=== PATIENT | female | born 1960 | race Caucasian/White ===

== ENCOUNTER 2017-03-05 06:08 | Emergency (ER) | payer OTHER ==
[2017-03-05 06:13] VITALS: BP 137/90
--- NOTE | 2017-03-05 06:25 | EDM.PDOC ---
ED HPI HEADACHE COMPLAINT - General Chief Complaint: Headache Stated Complaint: migraine Time Seen by Provider: 03/05/17 06:24 Source of Information: Reports: Patient, RN, RN notes reviewed History Limitations: Reports: No limitations - History of Present Illness INITIAL COMMENTS - FREE TEXT/NARRATIVE: Patient presents to the emergency room at [facility] complaining of a severe migraine headache. The patient states her migraine began last Sunday. The patient states that she did take 2 of her Imitrex at home, which did not help. The patient states she has been severely nauseated. The patient states she has severe photophobia. The patient states that she has been vomiting every 3 hours. 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, Other medication(s) - Related Data Allergies/ADRs: Allergies Allergy/AdvReac Type Severity Reaction Status Date / Time gabapentin Allergy Hives Verified 03/05/17 06:09 Home Meds: Home Meds DULoxetine HCl [Cymbalta] 60 mg PO BID 06/16/14 [History] Estrogens, Conjugated [Premarin] 0.3 mg PO DAILY 06/16/14 [History] Hydrocodone/Acetaminophen [Hydrocodon-Acetaminophn 10-325] 10 - 325 mg PO Q4HR PRN 06/16/14 [History] Lansoprazole 30 mg PO DAILY 06/16/14 [History] Metoprolol Tartrate [Lopressor] 50 mg PO DAILY 06/16/14 [History] Pramipexole [Mirapex] 0.5 mg PO BEDTIME 06/16/14 [History] SUMAtriptan Succinate [Imitrex] 100 mg PO BID PRN 06/16/14 [History] buPROPion HCl [Wellbutrin Xl] 300 mg PO DAILY 06/16/14 [History] Topiramate [Topamax] 1 tab PO DAILY 04/23/15 [History] Linaclotide [Linzess] 1 cap PO DAILY 09/18/15 [History] Past Medical History Other Gastrointestinal History: ulcers Neurological History: Reports: Migraines - Past Surgical History Other GI Surgeries/Procedures: cyst removed from stomach Social & Family History - Family History Family Medical History: Noncontributory - Tobacco Use Smoking Status *Q: Never Smoker Second Hand Smoke Exposure: No - Alcohol Use Days Per Week of Alcohol Use: 0 - Recreational Drug Use Recreational Drug Use: No ED ROS GENERAL - Review of Systems Review Of Systems: See Below Constitutional: Denies: fever, chills, weakness HEENT: Denies: Vertigo, Vision change Respiratory: Denies: Shortness of Breath, Cough Cardiovascular: Denies: Chest pain, Palpitations GI/Abdominal: Reports: Nausea, Vomiting. Denies: Diarrhea Skin: Reports: no symptoms Neurological: Reports: Headache. Denies: Numbness, Paresthesia, Tingling - Physical Exam Exam: See Below Exam Limited By: No limitations General Appearance: alert, moderate distress Eye Exam: bilateral eye: EOMI, normal inspection, PERRL Respiratory/Chest: no respiratory distress, lungs clear, normal breath sounds Cardiovascular: regular rate, rhythm GI/Abdominal: normal bowel sounds, soft, non tender Neuro Exam (Abbreviated): alert, oriented Skin Exam: Warm, Dry, Intact, Normal color, No rash Course - Vital Signs Last Recorded V/S: Last Vital Signs Temp 36.6 C 03/05/17 06:10 Pulse 129 H 03/05/17 06:10 Resp 22 H 03/05/17 06:10 BP 137/90 03/05/17 06:10 Pulse Ox 95 03/05/17 06:10 - Orders/Labs/Meds Orders: Active Orders 24 hr Category Date Time Status Sodium Chloride 0.9% [Normal Saline] 1,000 ml Med 03/05/17 06:30 Active IV ASDIRECTED Sodium Chloride 0.9% [Saline Flush] Med 03/05/17 06:30 Active 10 ml FLUSH ASDIRECTED PRN Peripheral IV Insertion Adult [OM.PC] Routine Oth 03/05/17 06:30 Ordered Medication Orders Sodium Chloride (Normal Saline) 1,000 mls @ 999 mls/hr IV ASDIRECTED ELTON Last Admin: 03/05/17 06:39 Dose: 999 mls/hr Sodium Chloride (Saline Flush) 10 ml FLUSH ASDIRECTED PRN PRN Reason: Keep Vein Open Meds: Medications Generic Name Dose Route Start Last Admin Trade Name Freq PRN Reason Stop Dose Admin Sodium Chloride 1,000 mls @ 999 mls/hr 03/05/17 06:30 03/05/17 06:39 Normal Saline IV 999 mls/hr ASDIRECTED ELTON Administration Sodium Chloride 10 ml 03/05/17 06:30 Saline Flush FLUSH ASDIRECTED PRN Keep Vein Open Discontinued Medications Generic Name Dose Route Start Last Admin Trade Name Freq PRN Reason Stop Dose Admin Ketorolac Tromethamine 30 mg 03/05/17 06:30 03/05/17 06:41 Toradol IVPUSH 03/05/17 06:31 30 mg ONETIME ONE Administration Ondansetron HCl 4 mg 03/05/17 06:30 03/05/17 06:40 Zofran IVPUSH 03/05/17 06:31 4 mg ONETIME ONE Administration Sumatriptan Succinate 6 mg 03/05/17 06:31 03/05/17 06:43 Imitrex SUBCUT 03/05/17 06:32 6 mg ONETIME ONE Administration Departure - Departure Time of Disposition: 07:03 Disposition: Home, Self-Care 01 Condition: good Clinical Impression: Migraine Qualifiers: Migraine type: unspecified Status migrainosus presence: without status migrainosus Intractability: not intractable Qualified Code(s): G43.909 - Migraine, unspecified, not intractable, without status migrainosus Instructions: Migraine Headache Referrals: Hollie Weaver MD [Physician] - Forms: ED Department Discharge Additional Instructions: 1. Stay well hydrated and rest 2. Talk with your Primary as symptoms warrant - Problem List Review Problem List Initiated/Reviewed/Updated: Yes - My Orders Last 24 Hours: My Active Orders 03/05/17 06:30 Sodium Chloride 0.9% [Normal Saline] 1,000 ml IV ASDIRECTED Sodium Chloride 0.9% [Saline Flush] 10 ml FLUSH ASDIRECTED PRN Peripheral IV Insertion Adult [OM.PC] Routine - Assessment/Plan Last 24 Hours: My Active Orders 03/05/17 06:30 Sodium Chloride 0.9% [Normal Saline] 1,000 ml IV ASDIRECTED Sodium Chloride 0.9% [Saline Flush] 10 ml FLUSH ASDIRECTED PRN Peripheral IV Insertion Adult [OM.PC] Routine
[2017-03-05] MEDS ORDERED: Sodium Chloride 0.9% 1,000 ML IV SCH (06:30)
[2017-03-05] MEDS ORDERED: Ketorolac 30 MG/ML SDV IVPUSH ONE (06:30)
[2017-03-05] MEDS ORDERED: Ondansetron 4 MG/2 ML SDV IVPUSH ONE (06:30)
[2017-03-05] MEDS ORDERED: Sodium Chloride 0.9% 10 ML Syringe FLUSH PRN (06:30)
[2017-03-05] MEDS ORDERED: SUMAtriptan 6 MG/0.5 ML SDV SUBCUT ONE (06:31)
== END 2017-03-05 07:40 | disposition home or self-care (01) ==
LOC: VM.ED 06:08
DX: G43.909 Migraine, unspecified, not intractable, without status migrainosus (principal); Z88.8 Allergy status to other drugs, medicaments and biological substances; Z79.899 Other long term (current) drug therapy
CPT/HCPCS: 96361; 96372; 96374; 96375; 99283; J1885; J2405; J3030; J7030

== ENCOUNTER 2020-05-23 13:13 | Emergency (ER) | payer OTHER ==
--- NOTE | 2020-05-23 14:04 | EDM.PDOC ---
ED HPI GENERAL MEDICAL PROBLEM - General Chief Complaint: General Time Seen by Provider: 05/23/20 13:20 Source of Information: Reports: Patient History Limitations: Reports: No Limitations - History of Present Illness INITIAL COMMENTS - FREE TEXT/NARRATIVE: Pt. presents to ER with complaints of laceration to forehead and pain in her R upper arm/shoulder but didn't come in to ER, stating that she didn't have a ride. Pt. states that she tripped over her dog last night around midnight, striking her head on the corner of a wall and her R upper arm on the floor. Pt. did not have any LOC. Pt. remembers the entire event and did not have any LOC. She has been unable to move her R upper arm. She denied any chest pain, shortness of breath, or palpitations prior to the fall. Pt. denies any neck pain. No nausea/vomiting. Denies any headache. No acute vision loss or change. Pt. denies drinking alcohol. No drug use. Onset: Today Onset Date: 05/23/20 Location: Reports: Head, Upper Extremity, Right Quality: Reports: Sharp Severity: Moderate Improves with: Reports: Immobilization Worsens with: Reports: Movement Right Shoulder Pain Score (Numeric/FACES): 10 Forehead Pain Score (Numeric/FACES): 10 - Related Data Allergies Allergy/AdvReac Type Severity Reaction Status Date / Time gabapentin Allergy Rash Verified 05/23/20 13:30 Home Meds: Home Meds DULoxetine HCl [Cymbalta] 120 mg PO BEDTIME 06/16/14 [History] Metoprolol Tartrate [Lopressor] 25 mg PO BID 06/16/14 [History] Pramipexole [Mirapex] 0.5 mg PO BEDTIME 06/16/14 [History] Linaclotide [Linzess] 290 mcg PO DAILY 09/18/15 [History] Fluticasone Propionate [Flonase] 1 spray NASBOTH BID PRN 04/18/17 [History] SUMAtriptan [Sumatriptan] 1 spray RADHAMES Q2H PRN 04/18/17 [History] SUMAtriptan succinate [Imitrex] 100 mg PO ASDIRECTED PRN 04/18/17 [History] Zolpidem Tartrate [Ambien] 10 mg PO BEDTIME PRN 04/18/17 [History] traMADol HCl [Ultram] 50 mg PO Q6H PRN 04/18/17 [History] SUMAtriptan [Imitrex] 6 mg SUBCUT DAILY PRN 07/31/17 [History] Aspirin 81 mg PO DAILY 08/28/19 [History] LORazepam 0.5 mg PO ASDIRECTED 08/28/19 [History] QUEtiapine Fumarate [Quetiapine Fumarate] 200 mg PO BEDTIME 08/28/19 [History] atorvaSTATin [Lipitor] 20 mg PO BEDTIME 08/28/19 [History] Cyclobenzaprine [Flexeril] 5 mg PO TID PRN 03/16/20 [History] Past Medical History HEENT History: Reports: Allergic Rhinitis, Other (See Below) Other HEENT History: perichondritis of pinna. myopia. presbyopia. chronic rhinitis Cardiovascular History: Reports: High Cholesterol, Hypertension Gastrointestinal History: Reports: Bowel Obstruction, GERD, Irritable Bowel Syndrome, Other (See Below) Other Gastrointestinal History: chronic gastric ulcer. nausea. 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 femur abnormality. bone and cartilage disorder. trochanteric bursitis bilat hip. left elbow pain Neurological History: Reports: Migraines, Seizure, Other (See Below) Other Neuro History: chronic fatigue Psychiatric History: Reports: Anxiety, Bipolar, Depression, PTSD Other Psychiatric History: insomnia Endocrine/Metabolic History: Reports: Osteopenia Hematologic History: Reports: Anemia, Iron Deficiency, Other (See Below) Other Hematologic History: hypercalcemia Dermatologic History: Reports: Other (See Below) Other Dermatologic History: neurodermatits. acne vulgaris - Past Surgical History GI Surgical History: Reports: Appendectomy, Colonoscopy, Other (See Below) Other GI Surgeries/Procedures: cyst removed from stomach. partial hemicolectomy Female Surgical History: Reports: Hysterectomy Musculoskeletal Surgical History: Reports: Shoulder Surgery Social & Family History - Family History Family Medical History: Noncontributory - Tobacco Use Smoking Status *Q: Never Smoker - Recreational Drug Use Recreational Drug Use: No ED ROS GENERAL - Review of Systems Review Of Systems: See Below Constitutional: Reports: No Symptoms HEENT: Reports: Other (See HPI) Respiratory: Reports: No Symptoms Cardiovascular: Reports: No Symptoms Endocrine: Reports: No Symptoms GI/Abdominal: Reports: No Symptoms : Reports: No Symptoms Musculoskeletal: Reports: No Symptoms, Shoulder Pain, Joint Pain Skin: Reports: No Symptoms Neurological: Reports: No Symptoms Psychiatric: Reports: No Symptoms Hematologic/Lymphatic: Reports: No Symptoms Immunologic: Reports: No Symptoms ED EXAM, GENERAL - Physical Exam Exam: See Below Exam Limited By: No Limitations General Appearance: Alert, WD/WN, No Apparent Distress Eye Exam: Bilateral Eye: EOMI, Normal Fundi, Normal Inspection, PERRL Nose: Normal Inspection, No Blood Throat/Mouth: Normal Inspection, Normal Lips, Normal Teeth, Normal Gums, Normal Oropharynx, Normal Voice, No Airway Compromise Head: Other (approx. 8 cm laceration/avulsion to forehead.) Neck: Normal Inspection, Supple, Non-Tender, Full Range of Motion Respiratory/Chest: No Respiratory Distress, Lungs Clear, Normal Breath Sounds, No Accessory Muscle Use, Chest Non-Tender Cardiovascular: Normal Peripheral Pulses, Regular Rate, Rhythm, No Edema, No Murmur Peripheral Pulses: 4+: Radial (R) GI/Abdominal: Soft, Non-Tender, No Distention, No Mass (Female) Exam: Deferred Rectal (Female) Exam: Deferred Back Exam: Normal Inspection, Full Range of Motion Extremities: Normal Inspection, Normal Range of Motion, Non-Tender, No Pedal Edema, Normal Capillary Refill Neurological: Alert, Oriented, CN II-XII Intact, Normal Cognition, Normal Gait, Normal Reflexes, No Motor/Sensory Deficits Psychiatric: Normal Affect, Normal Mood Skin Exam: Warm, Dry, Intact, Normal Color, No Rash Lymphatic: No Adenopathy Course - Vital Signs Last Recorded V/S: Last Vital Signs Temp 36.4 C 05/23/20 13:18 Pulse 129 H 05/23/20 13:18 Resp 20 05/23/20 13:18 BP 111/67 05/23/20 13:18 Pulse Ox 98 05/23/20 13:18 - Orders/Labs/Meds Orders: Active Orders 24 hr Category Date Time Status Cervical Spine wo Cont [CT] Stat Exams 05/23/20 13:33 Ordered Head wo Cont [CT] Stat Exams 05/23/20 13:32 Ordered Humerus Rt [CR] Stat Exams 05/23/20 13:33 Ordered Shoulder Comp Rt [CR] Stat Exams 05/23/20 13:35 Ordered Sodium Chloride 0.9% [Saline Flush] Med 05/23/20 14:16 Ordered 10 ml FLUSH ASDIRECTED PRN Peripheral IV Insertion Adult [OM.PC] Routine Oth 05/23/20 14:16 Ordered Medication Orders Sodium Chloride (Saline Flush) 10 ml FLUSH ASDIRECTED PRN PRN Reason: Keep Vein Open Labs: Laboratory Tests 05/23/20 05/23/20 05/23/20 Range/Units 13:51 13:51 13:51 WBC 13.1 H (4.0-10.0) x10^3/uL RBC 3.87 L (4.00-5.50) x10^6/uL Hgb 11.0 L (12.0-16.0) g/dL Hct 34.1 (33.0-47.0) % MCV 88.1 D (78.0-93.0) fL MCH 28.4 (26.0-32.0) pg MCHC 32.3 (32.0-36.0) g/dL RDW Coeff of Celina 19.2 H (10.0-15.0) % Plt Count 384 D (130-400) x10^3/uL Neut % (Auto) 78.7 (50.0-80.0) % Lymph % (Auto) 13.9 L (25.0-50.0) % Casey % (Auto) 5.8 (2.0-11.0) % Eos % (Auto) 1.2 (0.0-4.0) % Baso % (Auto) 0.4 (0.2-1.2) % PT 10.0 (9.5-12.3) SEC INR 0.9 L (2.0-3.5) Sodium 140 (136-145) mmol/L Potassium 4.2 (3.5-5.1) mmol/L Chloride 105 (98-107) mmol/L Carbon Dioxide 23 (21-32) mmol/L Anion Gap 16.2 (10-20) mmol/L BUN 17 (7-18) mg/dL Creatinine 1.1 H (0.55-1.02) mg/dL Est Cr Clr Drug Dosing TNP Estimated GFR (MDRD) 51 Glucose 143 H (74-106) mg/dL Calcium 9.0 (8.5-10.1) mg/dL Corrected Calcium 9.72 (8.5-10.1) mg/dL Total Bilirubin 0.2 (0.2-1.0) mg/dL AST 17 (15-37) U/L ALT 17 (14-59) U/L Alkaline Phosphatase 106 (46-116) U/L Total Protein 7.0 (6.4-8.2) g/dL Albumin 3.1 L (3.4-5.0) g/dL Globulin 3.9 Albumin/Globulin Ratio 0.79 Meds: Medications Generic Name Dose Route Start Last Admin Trade Name Freq PRN Reason Stop Dose Admin Sodium Chloride 10 ml 05/23/20 14:16 Saline Flush FLUSH ASDIRECTED PRN Keep Vein Open Discontinued Medications Generic Name Dose Route Start Last Admin Trade Name Freq PRN Reason Stop Dose Admin Cefazolin Sodium 1 gm 05/23/20 14:16 05/23/20 14:30 Ancef IVPUSH 05/23/20 14:17 1 gm ONETIME ONE Administration Hydromorphone HCl 1 mg 05/23/20 14:25 05/23/20 14:33 Dilaudid IVPUSH 05/23/20 14:26 1 mg ONETIME ONE Administration Lidocaine HCl 30 ml 05/23/20 14:17 05/23/20 14:33 Xylocaine-Mpf 1% INJECT 05/23/20 14:18 30 ml ONETIME ONE Administration Departure - Departure Time of Disposition: 14:39 Disposition: DC/Tfer to Acute Hospital 02 Clinical Impression: Scalp laceration, Humerus head fracture - Discharge Information Forms: ED Department Discharge Sepsis Event Note (ED) - Evaluation Sepsis Screening Result: No Definite Risk - Focused Exam Vital Signs: Vital Signs Temp Pulse Resp BP Pulse Ox 05/23/20 13:18 36.4 C 129 H 20 111/67 98 - Problem List Review Problem List Initiated/Reviewed/Updated: Yes - My Orders Last 24 Hours: My Active Orders 05/23/20 13:32 Head wo Cont [CT] Stat 05/23/20 13:33 Cervical Spine wo Cont [CT] Stat Humerus Rt [CR] Stat 05/23/20 13:35 Shoulder Comp Rt [CR] Stat 05/23/20 14:16 Sodium Chloride 0.9% [Saline Flush] 10 ml FLUSH ASDIRECTED PRN Peripheral IV Insertion Adult [OM.PC] Routine - Assessment/Plan Last 24 Hours: My Active Orders 05/23/20 13:32 Head wo Cont [CT] Stat 05/23/20 13:33 Cervical Spine wo Cont [CT] Stat Humerus Rt [CR] Stat 05/23/20 13:35 Shoulder Comp Rt [CR] Stat 05/23/20 14:16 Sodium Chloride 0.9% [Saline Flush] 10 ml FLUSH ASDIRECTED PRN Peripheral IV Insertion Adult [OM.PC] Routine Plan: Pt. will be transferred to [facility]. She will likely require surgical irrigation and closure of this injury due to delay in coming to ER. She does have a displaced humeral head fracture as well. Dr. Nguyen at [facility] in [place] accepts the patient in transfer. She will be transported via [facility] ground ambulance. Pt. was given a ancef 1 gm IV and dilaudid 1 mg IV. She was placed on a R arm sling.
[2020-05-23 14:14] LABS: CHLORIDE,CL 105 mmol/L (98-107); SODIUM,NA 140 mmol/L (136-145)
[2020-05-23 14:15] LABS: ANION GAP 16.2 mmol/L (10-20)
[2020-05-23] MEDS ORDERED: Sodium Chloride 0.9% 10 ML Syringe FLUSH PRN (14:16)
[2020-05-23] MEDS ORDERED: ceFAZolin 1 GM Vial IVPUSH ONE (14:16)
[2020-05-23] MEDS ORDERED: Lidocaine 1% 30 ML SDV INJECT ONE (14:17)
[2020-05-23] MEDS ORDERED: HYDROmorphone 1 MG/ML Syringe IVPUSH ONE (14:25)
[2020-05-23 14:48] VITALS: BP 136/81; PULSE 124
[2020-05-23] MEDS ORDERED: Sodium Chloride 0.9% 500 ML IV ONE (14:58)
--- NOTE | 2020-05-25 08:53 | CR ---
[id number] RAD/RAD Humerus Right 2V; [id number] RAD/RAD Shoulder Right 2V Min EXAM: RAD Humerus Right 2V, RAD Shoulder Right 2V Min INDICATION: Fall with right shoulder pain. COMPARISON: None. DISCUSSION: There is an acute mildly comminuted fracture of the proximal humeral metaphysis with nearly one full shaft width of anterior-medial displacement of the main distal fracture segment. No dislocation or other osseous abnormality is identified. IMPRESSION: 1. Acute significantly displaced and mildly comminuted proximal humeral metaphysis fracture. Kyle Meza MD 05/25/20 0852 Thank you for allowing us to participate in the care of your patient.
--- NOTE | 2020-05-25 08:53 | CT ---
[id number] CT/CT Head WO IV EXAM: NONCONTRAST HEAD CT INDICATION: FALL COMPARISON: None. DISCUSSION: Anterior scalp/forehead laceration and soft tissue swelling. Acute mildly displaced and angulated bilateral nasal bone fractures. There is mild generalized atrophy. The santana and white matter are normal in attenuation. No mass effect or midline shift. No acute hemorrhage or extra-axial fluid collection. No acute territorial infarct is identified. A limited look at the orbits and paranasal sinuses is unremarkable. IMPRESSION: 1. Acute bilateral nasal bone fractures. 2. Negative for acute intracranial trauma. Kyle Meza MD 05/25/20 0852 Thank you for allowing us to participate in the care of your patient.
--- NOTE | 2020-05-25 08:53 | CT ---
[id number] CT/CT Cervical Spine WO IV EXAM: NONCONTRAST CERVICAL SPINE CT INDICATION: FALL COMPARISON: None. DISCUSSION: Slight retrolisthesis C5 on C6. The vertebral bodies are otherwise normal in height and alignment. No fracture or suspicious osseous lesion is identified. Mild scattered facet arthropathy. Mild degenerative disc disease C5-C6. Multiple dental caries are noted. IMPRESSION: 1. Negative for acute cervical spine fracture. Kyle Meza MD 05/25/20 0852 Thank you for allowing us to participate in the care of your patient.
== END 2020-05-23 15:20 | disposition short-term general hospital (02) ==
LOC: VM.ED 13:13
DX: S42.201A Unspecified fracture of upper end of right humerus, initial encounter for closed fracture (principal); S02.2XXA Fracture of nasal bones, initial encounter for closed fracture; S01.01XA Laceration without foreign body of scalp, initial encounter; I12.9 Hypertensive chronic kidney disease with stage 1 through stage 4 chronic kidney disease, or unspecified chronic kidney disease; N18.9 Chronic kidney disease, unspecified; E78.00 Pure hypercholesterolemia, unspecified; M19.90 Unspecified osteoarthritis, unspecified site; F41.9 Anxiety disorder, unspecified; F31.9 Bipolar disorder, unspecified; Z88.8 Allergy status to other drugs, medicaments and biological substances; Z79.82 Long term (current) use of aspirin; Z79.899 Other long term (current) drug therapy; W01.10XA Fall on same level from slipping, tripping and stumbling with subsequent striking against unspecified object, initial encounter
CPT/HCPCS: 36415; 70450; 72125; 73030-RT; 73060-RT; 80053; 85025; 85610; 96374; 96375; 99284-GF; 99285-25; J0690; J1170; J2001; J7040

== ENCOUNTER 2020-07-17 23:08 | Emergency (ER) | payer OTHER ==
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
[2020-07-17 23:34] VITALS: BP 114/72; PULSE 116
[2020-07-18 00:20] LABS: CHLORIDE,CL 102 mmol/L (98-107); SODIUM,NA 139 mmol/L (136-145)
[2020-07-18 00:22] LABS: ANION GAP 15.9 mmol/L (10-20)
[2020-07-18 00:54] LABS: BUPRENORPHINE,URINE NEGATIVE (NEGATIVE); MARIJUANA,URINE NEGATIVE (NEGATIVE); METHYLENEDIOXYMETHAMP,UR NEGATIVE (NEGATIVE)
[2020-07-18 00:55] LABS: PHENCYCLIDINE,URINE NEGATIVE (NEGATIVE)
--- NOTE | 2020-07-18 09:37 | CT ---
[id number] CT/CT Head WO IV EXAM: CT Head WO IV CLINICAL DATA: ALTERED MENTAL STATUS COMPARISON: CORRELATION IS MADE WITH MAY 23, 2020 FINDINGS: There is no mass or mass effect. There is no hemorrhage or hydrocephalus. There are no extra-axial fluid collections. There are no sites of abnormal attenuation. IMPRESSION: NO PLAIN CT EVIDENCE OF ACUTE INTRACRANIAL PROCESS. Kirill Bahena MD 07/18/20 0936 Thank you for allowing us to participate in the care of your patient.
== END 2020-07-18 01:04 | disposition home or self-care (01) ==
LOC: VM.ED 23:08
DX: R41.82 Altered mental status, unspecified (principal); I12.9 Hypertensive chronic kidney disease with stage 1 through stage 4 chronic kidney disease, or unspecified chronic kidney disease; N18.9 Chronic kidney disease, unspecified; D63.1 Anemia in chronic kidney disease; F41.9 Anxiety disorder, unspecified; F31.9 Bipolar disorder, unspecified; Z88.8 Allergy status to other drugs, medicaments and biological substances; Z79.899 Other long term (current) drug therapy
CPT/HCPCS: 36415; 70450; 80053; 80305-QW; 81002; 84484; 85025; 86140; 99284; 99285-25

== ENCOUNTER 2020-09-06 15:55 | Emergency (ER) | payer OTHER ==
[2020-09-06 16:53] LABS: ANION GAP 14.2 mmol/L (10-20); CHLORIDE,CL 108 mmol/L (98-107); SODIUM,NA 144 mmol/L (136-145)
[2020-09-06] MEDS ORDERED: Ondansetron 4 MG/2 ML SDV IVPUSH ONE (17:00)
[2020-09-06] MEDS ORDERED: Sodium Chloride 0.9% 1,000 ML IV ONE (17:00)
--- NOTE | 2020-09-06 17:59 | EDM.PDOC ---
ED HPI GENERAL MEDICAL PROBLEM - General Chief Complaint: ENT Problem Stated Complaint: ER Time Seen by Provider: 09/06/20 15:57 Source of Information: Reports: Patient, EMS History Limitations: Reports: No Limitations - History of Present Illness INITIAL COMMENTS - FREE TEXT/NARRATIVE: Pt brought to ER via EMS for persistent nose bleed since this AM Pt with increased bleeding today No trauma Has had nose bleed in past Pt also complains of nausea and diarrhea Rare cough No fever Onset: Today, Sudden Location: Reports: Face Associated Symptoms: Reports: Nausea/Vomiting, Other (Diarrhea) - Related Data Allergies Allergy/AdvReac Type Severity Reaction Status Date / Time gabapentin Allergy Rash Verified 09/06/20 16:27 Home Meds: Home Meds DULoxetine HCl [Cymbalta] 120 mg PO BEDTIME 06/16/14 [History] Metoprolol Tartrate [Lopressor] 25 mg PO BID 06/16/14 [History] Pramipexole [Mirapex] 0.5 mg PO BEDTIME 06/16/14 [History] Fluticasone Propionate [Flonase] 1 spray NASBOTH BID 04/18/17 [History] SUMAtriptan [Sumatriptan] 1 spray RADHAMES Q2H PRN 04/18/17 [History] SUMAtriptan succinate [Imitrex] 100 mg PO ASDIRECTED PRN 04/18/17 [History] Zolpidem Tartrate [Ambien] 10 mg PO BEDTIME PRN 04/18/17 [History] traMADol HCl [Ultram] 50 mg PO Q6H PRN 04/18/17 [History] SUMAtriptan [Imitrex] 6 mg SUBCUT DAILY PRN 07/31/17 [History] LORazepam 0.5 mg PO BID 08/28/19 [History] QUEtiapine Fumarate [Quetiapine Fumarate] 200 mg PO BEDTIME 08/28/19 [History] atorvaSTATin [Lipitor] 20 mg PO BEDTIME 08/28/19 [History] Acetaminophen 650 mg PO Q6H PRN 07/17/20 [History] Bisacodyl [Gentle Laxative] 10 mg RC DAILY PRN 07/17/20 [History] Docusate Sodium/Sennosides [Senokot-S] 1 each PO DAILY PRN 07/17/20 [History] Ferrous Sulfate 325 mg PO DAILY 07/17/20 [History] Montelukast [Singulair] 10 mg PO DAILY 07/17/20 [History] polyethylene glycoL 3350 [MiraLAX] 17 gm PO DAILY PRN 07/17/20 [History] Past Medical History HEENT History: Reports: Allergic Rhinitis, Other (See Below) Other HEENT History: perichondritis of pinna. myopia. presbyopia. chronic rhinitis Cardiovascular History: Reports: High Cholesterol, Hypertension Gastrointestinal History: Reports: Bowel Obstruction, GERD, Irritable Bowel Syndrome, Other (See Below) Other Gastrointestinal History: chronic gastric ulcer. nausea. 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 femur abnormality. bone and cartilage disorder. trochanteric bursitis bilat hip. left elbow pain Neurological History: Reports: Migraines, Seizure, Other (See Below) Other Neuro History: chronic fatigue Psychiatric History: Reports: Anxiety, Bipolar, Depression, PTSD Other Psychiatric History: insomnia Endocrine/Metabolic History: Reports: Osteopenia Other Endocrine/Metabolic History: hypercalcemia Hematologic History: Reports: Anemia, Iron Deficiency, Other (See Below) Other Hematologic History: hypercalcemia Dermatologic History: Reports: Other (See Below) Other Dermatologic History: neurodermatits. acne vulgaris - Past Surgical History GI Surgical History: Reports: Appendectomy, Colonoscopy, Other (See Below) Other GI Surgeries/Procedures: cyst removed from stomach. partial hemicolectomy Female Surgical History: Reports: Hysterectomy Musculoskeletal Surgical History: Reports: Shoulder Surgery Social & Family History - Family History Family Medical History: Noncontributory - Tobacco Use Tobacco Use Status *Q: Never Tobacco User ED ROS GENERAL - Review of Systems Review Of Systems: See Below HEENT: Reports: Other (Epistaxsis resolved) Respiratory: Reports: No Symptoms Cardiovascular: Reports: No Symptoms GI/Abdominal: Reports: Diarrhea, Nausea ED EXAM, GENERAL - Physical Exam Exam: See Below Exam Limited By: No Limitations General Appearance: Alert, WD/WN Nose: Other (Epistaxsis resolved Old blood in nares) Head: Atraumatic Neck: Supple Respiratory/Chest: Lungs Clear Cardiovascular: Regular Rate, Rhythm GI/Abdominal: Soft, Non-Tender Extremities: Normal Inspection Neurological: Alert, Oriented Course - Vital Signs Last Recorded V/S: Last Vital Signs Temp 98.2 F 09/06/20 16:00 Pulse 62 09/06/20 16:00 Resp 16 09/06/20 16:00 BP 174/103 H 09/06/20 16:00 Pulse Ox 98 09/06/20 16:00 - Orders/Labs/Meds Orders: Active Orders 24 hr Category Date Time Status Sodium Chloride 0.9% [Normal Saline] 1,000 ml Med 09/06/20 17:00 Active IV ONETIME Medication Orders Sodium Chloride (Normal Saline) 1,000 mls @ 999 mls/hr IV ONETIME ONE Stop: 09/06/20 18:00 Last Admin: 09/06/20 17:08 Dose: 999 mls/hr Documented by: CECELIA Labs: Laboratory Tests 09/06/20 09/06/20 09/06/20 Range/Units 16:05 16:28 16:28 WBC 9.7 (4.0-10.0) x10^3/uL RBC 3.66 L (4.00-5.50) x10^6/uL Hgb 8.8 L (12.0-16.0) g/dL Hct 28.7 L (33.0-47.0) % MCV 78.4 D (78.0-93.0) fL MCH 24.0 L (26.0-32.0) pg MCHC 30.7 L (32.0-36.0) g/dL RDW Coeff of Celina 16.4 H (10.0-15.0) % Plt Count 517 H D (130-400) x10^3/uL Add Manual Diff Yes Neutrophils % (Manual) 60 (50-80) % Lymphocytes % (Manual) 26 (25-50) % Reactive Lymphs % 1 H (0) % Monocytes % (Manual) 5 (2-11) % Eosinophils % (Manual) 7 H (0-4) % Basophils % (Manual) 1 (0-1) % Hypersegmented Neuts Few H Vacuolated Monocytes Rare Toxic Granulation Few Platelet Estimate Increased H Hypochromasia 1+ slight H Anisocytosis 1+ slight H Target Cells 1+ slight H Ovalocytes 1+ slight H Sodium 144 (136-145) mmol/L Potassium 3.2 L (3.5-5.1) mmol/L Chloride 108 H (98-107) mmol/L Carbon Dioxide 25 (21-32) mmol/L Anion Gap 14.2 (10-20) mmol/L BUN 24 H (7-18) mg/dL Creatinine 0.8 (0.55-1.02) mg/dL Est Cr Clr Drug Dosing 72.72 mL/min Estimated GFR (MDRD) > 60 Glucose 122 H (74-106) mg/dL Calcium 9.0 (8.5-10.1) mg/dL Corrected Calcium 9.40 (8.5-10.1) mg/dL Total Bilirubin 0.2 (0.2-1.0) mg/dL AST 10 L (15-37) U/L ALT 13 L (14-59) U/L Alkaline Phosphatase 110 (46-116) U/L Total Protein 6.8 (6.4-8.2) g/dL Albumin 3.5 (3.4-5.0) g/dL Globulin 3.3 Albumin/Globulin Ratio 1.06 SARS CoV-2 RNA Rapid GVAI Negative (NEGATIVE) Meds: Medications Generic Name Dose Route Start Last Admin Trade Name Freq PRN Reason Stop Dose Admin Sodium Chloride 1,000 mls @ 999 mls/hr 09/06/20 17:00 09/06/20 17:08 Normal Saline IV 09/06/20 18:00 999 mls/hr ONETIME ONE Administration Discontinued Medications Generic Name Dose Route Start Last Admin Trade Name Freq PRN Reason Stop Dose Admin Ondansetron HCl 8 mg 09/06/20 17:00 09/06/20 17:08 Zofran IVPUSH 09/06/20 17:01 8 mg ONETIME ONE Administration - Re-Assessments/Exams Free Text/Narrative Re-Assessment/Exam: 09/06/20 17:57 Pt stable in ER See lab No further epistaxsis Pt given 1 L NS IVF and IV Zofran 8 mg Departure - Departure Time of Disposition: 18:00 Disposition: Home, Self-Care 01 Clinical Impression: Epistaxis Diarrhea Qualifiers: Diarrhea type: unspecified type Qualified Code(s): R19.7 - Diarrhea, unspecified - Discharge Information *PRESCRIPTION DRUG MONITORING PROGRAM REVIEWED*: Not Applicable *COPY OF PRESCRIPTION DRUG MONITORING REPORT IN PATIENT YOSI: Not Applicable Instructions: Diarrhea, Adult, Nosebleed, [id number] Referrals: Hollie Weaver MD [Primary Care Provider] - Additional Instructions: Follow up in clinic Sepsis Event Note (ED) - Evaluation Sepsis Screening Result: No Definite Risk - Focused Exam Vital Signs: Vital Signs Temp Pulse Resp BP Pulse Ox 09/06/20 16:00 98.2 F 62 16 174/103 H 98 - My Orders Last 24 Hours: My Active Orders 09/06/20 17:00 Sodium Chloride 0.9% [Normal Saline] 1,000 ml IV ONETIME - Assessment/Plan Last 24 Hours: My Active Orders 09/06/20 17:00 Sodium Chloride 0.9% [Normal Saline] 1,000 ml IV ONETIME
[2020-09-06 18:40] VITALS: BP 168/94; PULSE 64
== END 2020-09-06 18:15 | disposition home or self-care (01) ==
LOC: VM.ED 15:55
DX: R04.0 Epistaxis (principal); R19.7 Diarrhea, unspecified; I10 Essential (primary) hypertension; K21.9 Gastro-esophageal reflux disease without esophagitis; I12.9 Hypertensive chronic kidney disease with stage 1 through stage 4 chronic kidney disease, or unspecified chronic kidney disease; N18.9 Chronic kidney disease, unspecified; F31.9 Bipolar disorder, unspecified; F41.9 Anxiety disorder, unspecified; E78.00 Pure hypercholesterolemia, unspecified; Z20.828 Contact with and (suspected) exposure to other viral communicable diseases; Z88.8 Allergy status to other drugs, medicaments and biological substances; Z79.899 Other long term (current) drug therapy
CPT/HCPCS: 36415; 80053; 85025; 87804; 87804-59; 96374; 99283; 99284-25; J2405; J7030; U0002

== ENCOUNTER 2021-06-29 13:48 | Emergency (ER) | payer OTHER ==
[2021-06-29 14:04] VITALS: BP 124/93; PULSE 109
--- NOTE | 2021-06-29 15:07 | CR ---
[id number] RAD/RAD Elbow Left 2V Exam: RAD Elbow Left 2V Indication:FALL, LEFT ELBOW PAIN. Comparison: No prior imaging for comparison. Discussion/Impression: No fracture or dislocation. No joint effusion. Joint spaces are well-preserved. Benny Lambert MD 06/29/21 [id number] Thank you for allowing us to participate in the care of your patient.
--- NOTE | 2021-06-29 15:08 | CT ---
[id number] CT/CT Head WO IV EXAM: CT Head WO IV CLINICAL DATA: TRAUMA COMPARISON: CORRELATION IS MADE WITH JULY 17, 2020 FINDINGS: Soft tissue swelling is seen in the left frontal region There is no mass or mass effect. There is no hemorrhage or hydrocephalus. There are no extra-axial fluid collections. There are no sites of abnormal attenuation. IMPRESSION: NO PLAIN CT EVIDENCE OF ACUTE INTRACRANIAL PROCESS. Kirill Bahena MD 06/29/21 [id number] Thank you for allowing us to participate in the care of your patient.
[2021-06-29 15:23] LABS: ANION GAP 11.1 mmol/L (5-15)
--- NOTE | 2021-06-29 16:15 | EDM.PDOC ---
ED HPI GENERAL MEDICAL PROBLEM - General Chief Complaint: Upper Extremity Injury/Pain Stated Complaint: FELL/LT ARM INJURY Time Seen by Provider: 06/29/21 16:40 - History of Present Illness INITIAL COMMENTS - FREE TEXT/NARRATIVE: Patient presents to the ED for fall, confusion. Initially patient is alone and history is hard to obtain, tangential and flight of ideas. Unsure of when or if she fell. Has a laceration on the left elbow and bruise to the left forehead. She is taking some medication for pain, anxiety and sleep. Her significant other states she has been taking some ambien and has been sleep walking, confused, somnolent in the morning and confused. Today she was walking around with a blanket and he hear a crashing sound. SHe had tripped over a garbage can and sustained a laceration to the elbow, bruise to the head. She was not making sense so he dropped her off here for evaluation. Tetanus is up to date. Left Elbow Pain Score (Numeric/FACES): 7 - Related Data Allergies Allergy/AdvReac Type Severity Reaction Status Date / Time gabapentin Allergy Rash Verified 06/29/21 16:41 Home Meds: Home Meds DULoxetine HCl [Cymbalta] 120 mg PO BEDTIME 06/16/14 [History] Metoprolol Tartrate [Lopressor] 25 mg PO BID 06/16/14 [History] Pramipexole [Mirapex] 0.5 mg PO BEDTIME 06/16/14 [History] SUMAtriptan [Sumatriptan] 1 spray RADHAMES Q2H PRN 04/18/17 [History] SUMAtriptan succinate [Imitrex] 100 mg PO ASDIRECTED PRN 04/18/17 [History] Zolpidem Tartrate [Ambien] 10 mg PO BEDTIME PRN 04/18/17 [History] traMADol HCl [Ultram] 50 mg PO Q6H PRN 04/18/17 [History] SUMAtriptan [Imitrex] 6 mg SUBCUT DAILY PRN 07/31/17 [History] LORazepam 0.5 mg PO BID 08/28/19 [History] atorvaSTATin [Lipitor] 20 mg PO BEDTIME 08/28/19 [History] Acetaminophen 650 mg PO Q6H PRN 07/17/20 [History] Bisacodyl [Gentle Laxative] 10 mg RC DAILY PRN 07/17/20 [History] Docusate Sodium/Sennosides [Senokot-S] 1 each PO DAILY PRN 07/17/20 [History] Ferrous Sulfate 325 mg PO DAILY 07/17/20 [History] Montelukast [Singulair] 10 mg PO DAILY 07/17/20 [History] polyethylene glycoL 3350 [MiraLAX] 17 gm PO DAILY PRN 07/17/20 [History] Past Medical History HEENT History: Reports: Allergic Rhinitis, Other (See Below) Other HEENT History: perichondritis of pinna. myopia. presbyopia. chronic rhinitis. hx of nasal fx Cardiovascular History: Reports: High Cholesterol, Hypertension Gastrointestinal History: Reports: Bowel Obstruction, GERD, Irritable Bowel Syndrome, Other (See Below) Other Gastrointestinal History: chronic gastric ulcer. nausea. 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 femur abnormality. bone and cartilage disorder. trochanteric bursitis bilat hip. left elbow pain. hx of humurus fx Neurological History: Reports: Migraines, Seizure, Other (See Below) Other Neuro History: chronic fatigue Psychiatric History: Reports: Anxiety, Bipolar, Depression, PTSD Other Psychiatric History: insomnia Endocrine/Metabolic History: Reports: Osteopenia Other Endocrine/Metabolic History: hypercalcemia Hematologic History: Reports: Anemia, Iron Deficiency, Other (See Below) Other Hematologic History: hypercalcemia Dermatologic History: Reports: Other (See Below) Other Dermatologic History: neurodermatits - Past Surgical History GI Surgical History: Reports: Appendectomy, Colonoscopy, Other (See Below) Other GI Surgeries/Procedures: cyst removed from stomach. partial hemicolectomy Female Surgical History: Reports: Hysterectomy Musculoskeletal Surgical History: Reports: Arthroscopic Procedure, Shoulder Surgery Other Musculoskeletal Surgeries/Procedures:: ORIF rt shoulder Social & Family History - Family History Family Medical History: No Pertinent Family History - Tobacco Use Tobacco Use Status *Q: Never Tobacco User - Recreational Drug Use Recreational Drug Use: No Review of Systems - Review of Systems Review Of Systems: See Below Reason Not Obtained: difficult to obtain due to altered mental status Constitutional: Reports: No Symptoms. Denies: Chills, Diaphoresis, Fever Eyes: Reports: No Symptoms. Denies: Photophobia, Vision Change, Glasses Ears: Reports: No Symptoms. Denies: Dizziness, Tinnitus, Bloody Discharge Nose: Reports: No Symptoms. Denies: Congestion, Clear Discharge Mouth/Throat: Reports: No Symptoms. Denies: Bleeding, Clots, Muffled Voice, Painful Swallowing Respiratory: Reports: No Symptoms. Denies: Shortness of Breath, Wheezing, Cough Cardiovascular: Reports: No Symptoms. Denies: Chest Pain, Edema, Lightheadedness, Palpitations GI/Abdominal: Reports: No Symptoms. Denies: Abdominal Pain, Decreased Appetite Genitourinary: Denies: Dysuria, Hematuria Musculoskeletal: Reports: Joint Pain (left elbow with laceration) Neurological: Reports: Confusion, Trouble Speaking, Difficulty Walking ED EXAM, GENERAL - Physical Exam Exam: See Below Exam Limited By: Altered Mental Status General Appearance: Alert, WD/WN, No Apparent Distress (cooperative, confused, tangential train of thought) Eye Exam: Bilateral Eye: EOMI, Normal Inspection, PERRL Ears: Normal External Exam, Normal Canal Ear Exam: Bilateral Ear: Auricle Normal, Canal Normal, TM normal Nose: Normal Inspection, Normal Mucosa, No Blood Head: Other (echymosis left frontal area). No: Facial Swelling, Facial Tenderness Neck: Normal Inspection, Supple, Non-Tender, Full Range of Motion Respiratory/Chest: No Respiratory Distress, Lungs Clear, Normal Breath Sounds Cardiovascular: Regular Rate, Rhythm, No Murmur, Tachycardia GI/Abdominal: Normal Bowel Sounds, Soft, Non-Tender Extremities: Normal Inspection, Normal Range of Motion, Non-Tender, Joint Swelling (minimal left elbow, laceration of 4 cm that is skin tear, full rom of the left elbow) Neurological: Alert, Oriented, CN II-XII Intact, No Motor/Sensory Deficits (normal finger to nose with eyes closed, normal ZENAIDA, negative pornator drift, normal strength upper and lower extremities. normal heel to larson. speech is not slurred, but non sensical), Memory Loss Recent Events Psychiatric: Other (speech is tangential, non sensical, flight of ideas) Course - Vital Signs Last Recorded V/S: Last Vital Signs Temp 36.3 C 06/29/21 14:03 Pulse 109 H 06/29/21 14:03 Resp 18 06/29/21 14:03 BP 124/93 H 06/29/21 14:03 Pulse Ox - Orders/Labs/Meds Orders: Active Orders 24 hr Category Date Time Status UA RFX SOPHIE AND CULT IF INDIC [URIN] Stat Lab 06/29/21 14:43 Ordered URINE DRUG SCREEN,POC [POC] Stat Lab 06/29/21 14:43 Ordered Labs: Laboratory Tests 06/29/21 06/29/21 06/29/21 Range/Units 14:57 14:57 14:57 WBC 10.2 H (4.0-10.0) x10^3/uL RBC 4.22 (4.00-5.50) x10^6/uL Hgb 11.6 L D (12.0-16.0) g/dL Hct 36.7 (33.0-47.0) % MCV 87.0 D (78.0-93.0) fL MCH 27.5 (26.0-32.0) pg MCHC 31.6 L (32.0-36.0) g/dL RDW Coeff of Celina (10.0-15.0) % Plt Count 394 D (130-400) x10^3/uL Neut % (Auto) 77.5 (50.0-80.0) % Lymph % (Auto) 12.7 L (25.0-50.0) % [place] % (Auto) 5.1 (2.0-11.0) % Eos % (Auto) 4.4 H (0.0-4.0) % Baso % (Auto) 0.3 (0.2-1.2) % Sodium 138 (136-145) mmol/L Potassium 4.1 (3.5-5.1) mmol/L Chloride 102 (98-107) mmol/L Carbon Dioxide 29 (21-32) mmol/L Anion Gap 11.1 (5-15) mmol/L BUN 16 (7-18) mg/dL Creatinine 1.0 (0.55-1.02) mg/dL Est Cr Clr Drug Dosing 57.83 mL/min Estimated GFR (MDRD) 57 Glucose 111 H (70-99) mg/dL Lactic Acid 1.4 (0.4-2.0) mmol/L Calcium 9.6 (8.5-10.1) mg/dL Corrected Calcium 9.7 (8.5-10.1) mg/dL Total Bilirubin 0.2 (0.2-1.0) mg/dL AST 19 (15-37) U/L ALT 19 (14-59) U/L Alkaline Phosphatase 118 H (46-116) U/L Total Protein 8.0 (6.4-8.2) g/dL Albumin 3.9 (3.4-5.0) g/dL Globulin 4.1 Albumin/Globulin Ratio 0.95 - Radiology Interpretation Free Text/Narrative:: left elbow with no fracture of dislocation, ct head without any acute intracranial proces.. interpreted by radiology - Re-Assessments/Exams Free Text/Narrative Re-Assessment/Exam: 06/29/21 left elbow was cleaned with saline, benzoin placed and steristrips pulled the skin tear together. tegaderm palced. Patient is clearing and making more sense at discharge. Does not remember events. Took ambien last night, advised to not take anymore. limit tramadol and benzodiazepines. Departure - Departure Time of Disposition: 16:11 Disposition: Home, Self-Care 01 Condition: Good Clinical Impression: AMS (altered mental status), Medication side effect, Elbow laceration, Head injury - Discharge Information Instructions: Head Injury, Adult, Head Injury, Adult, [id number], Nonsutured Laceration Care Referrals: Hollie Weaver MD [Primary Care Provider] - Forms: ED Department Discharge Additional Instructions: The elbow has steristrips and a tegaderm dressing. leave the dressing in place several days, then change it daily. watch for signs of infection, no swimming pools, ponds etc until the elbow is healed. Limit strenuous activity. Head CT is negative. stop the ambien. limit use of pain medication and lorazepam or other anxiety medications today until your thinking clears. Sepsis Event Note (ED) - Evaluation Sepsis Screening Result: No Definite Risk - Focused Exam Vital Signs: Vital Signs Temp Pulse Resp BP 06/29/21 14:03 36.3 C 109 H 18 124/93 H - My Orders Last 24 Hours: My Active Orders 06/29/21 14:43 UA RFX SOPHIE AND CULT IF INDIC [URIN] Stat URINE DRUG SCREEN,POC [POC] Stat - Assessment/Plan Last 24 Hours: My Active Orders 06/29/21 14:43 UA RFX SOPHIE AND CULT IF INDIC [URIN] Stat URINE DRUG SCREEN,POC [POC] Stat
== END 2021-06-29 16:22 | disposition home or self-care (01) ==
LOC: VM.ED 13:48
DX: R41.82 Altered mental status, unspecified (principal); T42.6X5A Adverse effect of other antiepileptic and sedative-hypnotic drugs, initial encounter; S51.012A Laceration without foreign body of left elbow, initial encounter; S00.83XA Contusion of other part of head, initial encounter; W01.0XXA Fall on same level from slipping, tripping and stumbling without subsequent striking against object, initial encounter; Y93.01 Activity, walking, marching and hiking; Y92.59 Other trade areas as the place of occurrence of the external cause
CPT/HCPCS: 36415; 70450; 73070-LT; 80053; 83605; 85025; 99284; 99285-25

== ENCOUNTER 2021-09-08 17:38 | Emergency (ER) | payer OTHER ==
--- NOTE | 2021-09-08 18:57 | EDM.PDOC ---
ED HPI GENERAL MEDICAL PROBLEM - General Chief Complaint: General Stated Complaint: LOW HEMOGLOBIN Time Seen by Provider: 09/08/21 18:30 Source of Information: Reports: Patient, Family History Limitations: Reports: No Limitations - History of Present Illness INITIAL COMMENTS - FREE TEXT/NARRATIVE: Patient sent here to the ER by her primary care provider after getting IM message from hematology oncology in [place] about setting her up for transfusion due to anemia chronic disease for the last 30 years. Lab today is hemoglobin of 5.5 hematocrit of 20 patient states she normally runs somewhere in the sevens or low eights and has been getting blood for the last 30 years. It is progressively gotten worse from being transfused every couple years to every year now at about every 6 to 4 months. 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 She stat es is nothing new for her to have a GI bleed every now and then she denies any bright red blood passing but states she has had intermittent tarry stools. She states she does not want a full work-up and only wants to get blood and is okay with being discharged afterwards. Duration: Chronic Severity: Moderate (Pain today is related to her back which is chronic she rates it about a 6 she states this is nothing new) Improves with: Reports: Medication Associated Symptoms: Reports: Weakness, Other (Fatigue). Denies: Confusion, Chest Pain, Fever/Chills, Headaches, Loss of Appetite, Nausea/Vomiting, Shortness of Breath - Related Data Allergies Allergy/AdvReac Type Severity Reaction Status Date / Time gabapentin Allergy Rash Verified 09/08/21 19:03 Home Meds: Home Meds DULoxetine HCl [Cymbalta] 120 mg PO BEDTIME 06/16/14 [History] Metoprolol Tartrate [Lopressor] 25 mg PO BID 06/16/14 [History] Pramipexole [Mirapex] 0.5 mg PO BEDTIME 06/16/14 [History] SUMAtriptan [Sumatriptan] 1 spray RADHAMES Q2H PRN 04/18/17 [History] SUMAtriptan succinate [Imitrex] 100 mg PO ASDIRECTED PRN 04/18/17 [History] Zolpidem Tartrate [Ambien] 10 mg PO BEDTIME PRN 04/18/17 [History] traMADol HCl [Ultram] 50 mg PO Q6H PRN 04/18/17 [History] SUMAtriptan [Imitrex] 6 mg SUBCUT DAILY PRN 07/31/17 [History] LORazepam 0.5 mg PO BID 08/28/19 [History] atorvaSTATin [Lipitor] 20 mg PO BEDTIME 08/28/19 [History] Acetaminophen 650 mg PO Q6H PRN 07/17/20 [History] Bisacodyl [Gentle Laxative] 10 mg RC DAILY PRN 07/17/20 [History] Docusate Sodium/Sennosides [Senokot-S] 1 each PO DAILY PRN 07/17/20 [History] Ferrous Sulfate 325 mg PO DAILY 07/17/20 [History] Montelukast [Singulair] 10 mg PO DAILY 07/17/20 [History] polyethylene glycoL 3350 [MiraLAX] 17 gm PO DAILY PRN 07/17/20 [History] Past Medical History HEENT History: Reports: Allergic Rhinitis, Other (See Below) Other HEENT History: perichondritis of pinna. myopia. presbyopia. chronic rhinitis. hx of nasal fx Cardiovascular History: Reports: High Cholesterol, Hypertension Gastrointestinal History: Reports: Bowel Obstruction, GERD, Irritable Bowel Syndrome, Other (See Below) Other Gastrointestinal History: chronic gastric ulcer. nausea. rectocele Genitourinary History: Reports: Chronic Renal Insuffiency, Other (See Below) Other Genitourinary History: acne vulgaris SYSTEMS ADMIN History: Reports: Other (See Below) Other SYSTEMS ADMIN History: post menopause Musculoskeletal History: Reports: Arthritis, Fibromyalgia, Other (See Below) Other Musculoskeletal History: RLS. femur abnormality. bone and cartilage disorder. trochanteric bursitis bilat hip. left elbow pain. hx of humurus fx Neurological History: Reports: Migraines, Seizure, Other (See Below) Other Neuro History: chronic fatigue Psychiatric History: Reports: Anxiety, Bipolar, Depression, PTSD Other Psychiatric History: insomnia Endocrine/Metabolic History: Reports: Osteopenia Other Endocrine/Metabolic History: hypercalcemia Hematologic History: Reports: Anemia, Iron Deficiency, Other (See Below) Other Hematologic History: hypercalcemia Dermatologic History: Reports: Other (See Below) Other Dermatologic History: neurodermatits - Past Surgical History GI Surgical History: Reports: Appendectomy, Colonoscopy, Other (See Below) Other GI Surgeries/Procedures: cyst removed from stomach. partial hemicolectomy Female Surgical History: Reports: Hysterectomy Musculoskeletal Surgical History: Reports: Arthroscopic Procedure, Shoulder Surgery Other Musculoskeletal Surgeries/Procedures:: ORIF rt shoulder Social & Family History - Family History Family Medical History: No Pertinent Family History ED ROS GENERAL - Review of Systems Review Of Systems: See Below Constitutional: Reports: Weakness, Fatigue. Denies: No Symptoms HEENT: Reports: No Symptoms Respiratory: Reports: No Symptoms Cardiovascular: Reports: No Symptoms Endocrine: Reports: Fatigue GI/Abdominal: Reports: Black Stool, Melena. Denies: Abdominal Pain, Anorexia, Constipation, Distension : Reports: No Symptoms Musculoskeletal: Reports: Back Pain. Denies: No Symptoms Skin: Reports: No Symptoms Neurological: Reports: Weakness Psychiatric: Reports: No Symptoms Hematologic/Lymphatic: Reports: Anemia Immunologic: Reports: No Symptoms ED EXAM, GENERAL - Physical Exam Exam: See Below Exam Limited By: No Limitations General Appearance: Alert, WD/WN, No Apparent Distress Eye Exam: Bilateral Eye: Normal Inspection, PERRL Nose: Normal Inspection, Normal Mucosa, No Blood Throat/Mouth: Normal Inspection, Normal Lips, Normal Teeth, Normal Gums, Normal Oropharynx, Normal Voice, No Airway Compromise Head: Atraumatic, Normocephalic Neck: Normal Inspection, Supple, Non-Tender, Full Range of Motion Respiratory/Chest: No Respiratory Distress, Lungs Clear, Normal Breath Sounds, No Accessory Muscle Use, Chest Non-Tender Cardiovascular: Normal Peripheral Pulses, Regular Rate, Rhythm, No Edema, No Gallop, No JVD, No Murmur, No Rub GI/Abdominal: Normal Bowel Sounds, Soft, Non-Tender, No Organomegaly, No Distention Back Exam: Normal Inspection, Full Range of Motion Extremities: Normal Inspection, Normal Range of Motion, Non-Tender, No Pedal Edema, Slow Capillary Refill Neurological: Alert, Oriented, CN II-XII Intact, Normal Cognition, Normal Gait, No Motor/Sensory Deficits Psychiatric: Normal Affect, Normal Mood Skin Exam: Warm, Dry, Intact, Normal Color, No Rash Course - Vital Signs Text/Narrative:: Patient will be brought in given 2 units packed red blood cells as an extended ER be discharged afterwards. Patient does not wish to have a full work-up only to be transfused and discharged home. Patient was rechecked after transfusing 2 units of packed red blood cells states she feels fine wants to go home all vital signs normal no complications have been noted from the transfusions. She was instructed to follow-up in the morning with her primary care provider to recheck her lab for her hemoglobin and hematocrit Last Recorded V/S: Last Vital Signs Temp 36.1 C 09/09/21 02:10 Pulse 72 09/09/21 02:10 Resp 16 09/09/21 02:10 BP 117/60 09/09/21 02:10 Pulse Ox 98 09/09/21 02:10 - Orders/Labs/Meds Orders: Active Orders 24 hr Category Date Time Status Transfuse PRBC [Transfuse Red Blood Cells] [COMM] Oth 09/08/21 19:07 Ordered Urgent Labs: Laboratory Tests 09/08/21 09/08/21 Range/Units 19: 19:22 Sodium 139 (136-145) mmol/L Potassium 5.1 (3.5-5.1) mmol/L Chloride 103 (98-107) mmol/L Carbon Dioxide 25 (21-32) mmol/L Anion Gap 16.1 H (5-15) mmol/L BUN 30 H (7-18) mg/dL Creatinine 0.9 (0.55-1.02) mg/dL Est Cr Clr Drug Dosing TNP Estimated GFR (MDRD) > 60 Glucose 97 (70-99) mg/dL Calcium 8.9 (8.5-10.1) mg/dL Blood Type O POSITIVE Gel Antibody Screen Negative Crossmatch See Detail Meds: Medications Discontinued Medications Generic Name Dose Route Start Last Admin Trade Name Freq PRN Reason Stop Dose Admin Acetaminophen 650 mg 09/08/21 19:07 09/08/21 20:46 Acetaminophen 325 Mg Tab PO 09/08/21 19:08 650 mg NOW ONE Administration Diphenhydramine HCl 25 mg 09/08/21 19:07 09/08/21 20:45 Diphenhydramine 50 Mg/Ml Sdv IV 09/08/21 19:08 25 mg ONETIME ONE Administration Departure - Departure Time of Disposition: 02:00 Disposition: Home, Self-Care 01 Condition: Good Clinical Impression: Anemia, chronic disease, Chronic back pain, Chronic GI bleeding - Discharge Information *PRESCRIPTION DRUG MONITORING PROGRAM REVIEWED*: No *COPY OF PRESCRIPTION DRUG MONITORING REPORT IN PATIENT YOSI: No Referrals: Hollie Weaver MD [Primary Care Provider] - Forms: ED Department Discharge Sepsis Event Note (ED) - Focused Exam Vital Signs: Vital Signs Temp Temp Pulse Resp BP Pulse Ox 09/09/21 02:10 36.1 C 72 16 117/60 98 09/09/21 01:45 36.3 C 73 16 116/61 97 09/09/21 01:15 35.5 C L 72 16 113/62 97 09/09/21 00:45 36.1 C 71 16 97/47 L 98 09/09/21 00:15 36.2 C 71 16 101/56 L 97 09/08/21 23:45 36.2 C 72 16 103/52 L 98 09/08/21 23:15 36.3 C 70 16 102/62 97 09/08/21 22:45 36.2 C 71 15 99/53 L 09/08/21 22:15 36.2 C 73 16 104/54 L 09/08/21 22:00 36.6 C 73 18 97/51 L 09/08/21 21:45 36.6 C 73 18 97/51 L 09/08/21 21:30 36.2 C 72 20 102/51 L 09/08/21 21:15 36.2 C 70 14 101/51 L 09/08/21 21:00 36.2 C 75 12 100/54 L 09/08/21 18:30 36.6 C 85 14 100/52 L 100 - Problem List & Annotations (1) Anemia, chronic disease SNOMED Code(s): 360057106 Code(s): D63.8 - ANEMIA IN OTHER CHRONIC DISEASES CLASSIFIED ELSEWHERE Status: Acute Current Visit: Yes - My Orders Last 24 Hours: My Active Orders 09/08/21 19:07 Transfuse PRBC [Transfuse Red Blood Cells] [COMM] Urgent - Assessment/Plan Last 24 Hours: My Active Orders 09/08/21 19:07 Transfuse PRBC [Transfuse Red Blood Cells] [COMM] Urgent
[2021-09-08] MEDS ORDERED: Acetaminophen 325 MG Tab PO ONE (19:07)
[2021-09-08] MEDS ORDERED: diphenhydrAMINE 50 MG/ML SDV IV ONE (19:07)
[2021-09-08 19:39] LABS: CHLORIDE,CL 103 mmol/L (98-107); SODIUM,NA 139 mmol/L (136-145)
[2021-09-08 19:51] LABS: ANION GAP 16.1 mmol/L (5-15)
[2021-09-09 02:09] VITALS: PULSE 72
[2021-09-09 02:10] VITALS: BP 117/60
== END 2021-09-09 02:15 | disposition home or self-care (01) ==
LOC: VM.ED 17:38
DX: K92.2 Gastrointestinal hemorrhage, unspecified (principal); E78.00 Pure hypercholesterolemia, unspecified; I12.9 Hypertensive chronic kidney disease with stage 1 through stage 4 chronic kidney disease, or unspecified chronic kidney disease; N18.9 Chronic kidney disease, unspecified; K21.9 Gastro-esophageal reflux disease without esophagitis; D63.1 Anemia in chronic kidney disease; Z88.5 Allergy status to narcotic agent; Z79.899 Other long term (current) drug therapy
CPT/HCPCS: 36430; 80048; 86850; 86900; 86901; 86920; 86922; 96374; 99284; A9270; J1200; P9016; 36415

== ENCOUNTER 2021-09-29 16:08 | Emergency (ER) | payer OTHER | END 2021-09-29 16:20 | disposition left against medical advice (07) | LOC: VM.ED 16:08 | DX: Z53.21 Procedure and treatment not carried out due to patient leaving prior to being seen by health care provider (principal) ==

== ENCOUNTER 2023-02-19 09:38 | Emergency (ER) | payer OTHER ==
[2023-02-19] MEDS ORDERED: Acetaminophen 500 MG Tab PO ONE (10:35)
[2023-02-19 13:59] VITALS: BP 125/78; PULSE 79
== END 2023-02-19 13:52 | disposition home or self-care (01) ==
LOC: VM.ED 09:38
DX: S06.0X1A Concussion with loss of consciousness of 30 minutes or less, initial encounter (principal); S19.9XXA Unspecified injury of neck, initial encounter; S79.912A Unspecified injury of left hip, initial encounter; E78.00 Pure hypercholesterolemia, unspecified; I12.9 Hypertensive chronic kidney disease with stage 1 through stage 4 chronic kidney disease, or unspecified chronic kidney disease; N18.9 Chronic kidney disease, unspecified; D63.1 Anemia in chronic kidney disease; Z88.8 Allergy status to other drugs, medicaments and biological substances; W00.0XXA Fall on same level due to ice and snow, initial encounter
CPT/HCPCS: 70450; 72100; 72125; 72220; 73502; 99284; A9270

== ENCOUNTER 2023-07-19 12:30 | Emergency (ER) | payer OTHER ==
[2023-07-19 13:01] VITALS: BP 148/73; PULSE 67
[2023-07-19 13:18] LABS: BASOPHILS ABSOLUTE AUTO 0.1 x10^3/uL (0.0-0.2); BASOPHILS PERCENT AUTO 1.2 % (0.2-1.2); EOSINOPHILS ABSOLUTE AUTO 0.3 x10^3/uL (0.0-0.5); EOSINOPHILS PERCENT AUTO 3.2 % (0.0-4.0); HEMATOCRIT 36.4 % (33.0-47.0); HEMOGLOBIN 12.6 g/dL (12.0-16.0); IMMATURE GRAN ABSOLUTE AUTO 0.02 x10^3/uL (0.00-0.07); LYMPHOCYTES ABSOLUTE AUTO 1.3 x10^3/uL (1.0-4.8); LYMPHOCYTES PERCENT AUTO 15.4 % (25.0-50.0); MEAN CORPUSCULAR HEMOGLOBIN 32.1 pg (26.0-32.0); MEAN CORPUSCULAR HGB CONC 34.6 g/dL (32.0-36.0); MEAN CORPUSCULAR VOLUME 92.9 fL (78.0-93.0); MONOCYTES ABSOLUTE AUTO 0.5 x10^3/uL (0.0-0.8); MONOCYTES PERCENT AUTO 5.8 % (2.0-11.0); NEUTROPHILS ABSOLUTE AUTO 6.3 x10^3/uL (1.8-7.7); NEUTROPHILS PERCENT AUTO 74.2 % (50.0-80.0); PLATELET COUNT,PLT 326 x10^3/uL (130-400); RED BLOOD CELL COUNT 3.92 x10^6/uL (4.00-5.50); WHITE BLOOD CELL COUNT,WBC 8.5 x10^3/uL (4.0-10.0)
[2023-07-19 13:31] LABS: PROTHROMBIN TIME 10.6 SEC (9.5-12.2); PTT,PARTIAL THROMBOPLSTIN TIME 41.5 SEC (23.6-33.6)
[2023-07-19 13:42] LABS: A/G RATIO 1.32; ALANINE AMINOTRANSFERASE,ALT 24 U/L (14-59); ALBUMIN 4.1 g/dL (3.4-5.0); ALKALINE PHOSPHATASE 103 U/L (46-116); ASPARTATE AMNIOTRANSFERASE,AST 22 U/L (15-37); BILIRUBIN TOTAL 0.4 mg/dL (0.2-1.0); BLOOD UREA NITROGEN,BUN 19 mg/dL (7-18); CARBON DIOXIDE,CO2 26 mmol/L (21-32); CHLORIDE,CL 108 mmol/L (98-107); CREATININE 0.8 mg/dL (0.55-1.02); GLUCOSE RANDOM 77 mg/dL (70-99); MAGNESIUM 1.8 mg/dL (1.8-2.4); PROTEIN TOTAL,TP 7.2 g/dL (6.4-8.2); SODIUM,NA 144 mmol/L (136-145); TSH ULTRASENSITIVE 0.774 uIU/mL (0.358-3.74)
[2023-07-19 13:44] LABS: ESTIMATED GFR 83 mL/min (>=60)
[2023-07-19 14:04] LABS: BILIRUBIN,URINE NEGATIVE (NEGATIVE); COLOR,URINE YELLOW (YELLOW); GLUCOSE,URINE NEGATIVE (NEGATIVE); KETONES,URINE NEGATIVE (NEGATIVE); LEUKOCYTE ESTERASE,URINE NEGATIVE (NEGATIVE); NITRITE,URINE NEGATIVE (NEGATIVE); OCCULT BLOOD,URINE NEGATIVE (NEGATIVE); PH,URINE 5.5 (5.0-8.0); PROTEIN,URINE 30 mg/dL (NEGATIVE)
[2023-07-19 14:06] LABS: APPEARANCE,URINE SLIGHTLY CLOUDY (CLEAR)
[2023-07-19 14:10] LABS: BACTERIA,URINE RARE /HPF (NOT SEEN); MUCUS,URINE NOT SEEN /LPF (NOT SEEN); RBC,URINE 0-5 /HPF (NOT SEEN); SQUAMOUS EPITHELIAL CELLS,UR OCCASIONAL /HPF (NOT SEEN); WBC,URINE 0-5 /HPF (NOT SEEN)
== END 2023-07-19 15:50 | disposition home or self-care (01) ==
LOC: VM.ED 12:30
DX: S82.832A Other fracture of upper and lower end of left fibula, initial encounter for closed fracture (principal); S09.90XA Unspecified injury of head, initial encounter; T14.8XXA Other injury of unspecified body region, initial encounter; K21.9 Gastro-esophageal reflux disease without esophagitis; E78.00 Pure hypercholesterolemia, unspecified; I10 Essential (primary) hypertension; Z88.8 Allergy status to other drugs, medicaments and biological substances; Z79.899 Other long term (current) drug therapy; W19.XXXA Unspecified fall, initial encounter; W22.8XXA Striking against or struck by other objects, initial encounter
CPT/HCPCS: 36415; 70450; 71045; 72100; 72125; 72170; 73600-LT; 80053; 81001; 83735; 84443; 84484; 85025; 85610; 85730; 93005; 99284

== ENCOUNTER 2023-07-26 12:17 | Observation (INO) | payer OTHER ==
[2023-07-26 12:58] LABS: BASOPHILS ABSOLUTE AUTO 0.1 x10^3/uL (0.0-0.2); BASOPHILS PERCENT AUTO 0.7 % (0.2-1.2); EOSINOPHILS ABSOLUTE AUTO 0.3 x10^3/uL (0.0-0.5); EOSINOPHILS PERCENT AUTO 2.9 % (0.0-4.0); HEMATOCRIT 39.3 % (33.0-47.0); HEMOGLOBIN 13.3 g/dL (12.0-16.0); IMMATURE GRAN ABSOLUTE AUTO 0.02 x10^3/uL (0.00-0.07); LYMPHOCYTES ABSOLUTE AUTO 1.7 x10^3/uL (1.0-4.8); LYMPHOCYTES PERCENT AUTO 17.3 % (25.0-50.0); MEAN CORPUSCULAR HEMOGLOBIN 31.1 pg (26.0-32.0); MEAN CORPUSCULAR HGB CONC 33.8 g/dL (32.0-36.0); MONOCYTES ABSOLUTE AUTO 0.7 x10^3/uL (0.0-0.8); MONOCYTES PERCENT AUTO 6.8 % (2.0-11.0); NEUTROPHILS PERCENT AUTO 72.1 % (50.0-80.0); PLATELET COUNT,PLT 352 x10^3/uL (130-400); RED BLOOD CELL COUNT 4.27 x10^6/uL (4.00-5.50); WHITE BLOOD CELL COUNT,WBC 9.7 x10^3/uL (4.0-10.0)
[2023-07-26 12:59] LABS: BILIRUBIN,URINE MODERATE (NEGATIVE); COLOR,URINE DARK YELLOW (YELLOW); GLUCOSE,URINE NEGATIVE (NEGATIVE); KETONES,URINE 15 mg/dL (NEGATIVE); LEUKOCYTE ESTERASE,URINE NEGATIVE (NEGATIVE); NITRITE,URINE NEGATIVE (NEGATIVE); OCCULT BLOOD,URINE NEGATIVE (NEGATIVE); PH,URINE 5.5 (5.0-8.0); PROTEIN,URINE 100 mg/dL (NEGATIVE)
[2023-07-26 13:00] LABS: APPEARANCE,URINE SLIGHTLY CLOUDY (CLEAR)
[2023-07-26 13:01] LABS: AMPHETAMINES SCREEN, URINE NEGATIVE (NEGATIVE); BARBITURATE SCREEN,URINE NEGATIVE (NEGATIVE); BENZODIAZEPINES SCREEN,URINE POSITIVE (NEGATIVE); BUPRENORPHINE SCREEN,URINE NEGATIVE (NEGATIVE); COCAINE METABOLITES,URINE NEGATIVE (NEGATIVE); METHADONE SCREEN, URINE NEGATIVE (NEGATIVE); METHAMPHETAMINE SCREEN, URINE NEGATIVE (NEGATIVE); OXYCODONE SCREEN,URINE NEGATIVE (NEGATIVE); PCP SCREEN,URINE NEGATIVE (NEGATIVE)
[2023-07-26 13:02] LABS: THC SCREEN,URINE 50 NG/ML POSITIVE (NEGATIVE)
[2023-07-26 13:19] LABS: RBC,URINE NOT SEEN /HPF (NOT SEEN); SQUAMOUS EPITHELIAL CELLS,UR NOT SEEN /HPF (NOT SEEN); WBC,URINE NOT SEEN /HPF (NOT SEEN)
[2023-07-26 13:20] LABS: A/G RATIO 1.26; ALANINE AMINOTRANSFERASE,ALT 22 U/L (14-59); ALBUMIN 4.3 g/dL (3.4-5.0); ALKALINE PHOSPHATASE 113 U/L (46-116); ASPARTATE AMNIOTRANSFERASE,AST 16 U/L (15-37); BILIRUBIN TOTAL 0.4 mg/dL (0.2-1.0); BLOOD UREA NITROGEN,BUN 16 mg/dL (7-18); C-REACTIVE PROTEIN 0.69 mg/dL (<=0.30); CALCIUM 9.7 mg/dL (8.5-10.1); CARBON DIOXIDE,CO2 28 mmol/L (21-32); CHLORIDE,CL 102 mmol/L (98-107); CREATININE 0.8 mg/dL (0.55-1.02); EST CRCL DRUG DOSING (CG) 62.65 mL/min; GLUCOSE RANDOM 151 mg/dL (70-99); POTASSIUM,K 3.4 mmol/L (3.5-5.1); PROTEIN TOTAL,TP 7.7 g/dL (6.4-8.2); SODIUM,NA 141 mmol/L (136-145)
[2023-07-26 13:20] LABS: BACTERIA,URINE NOT SEEN /HPF (NOT SEEN); MUCUS,URINE RARE /LPF (NOT SEEN)
[2023-07-26 13:23] LABS: ANION GAP 14.4 mmol/L (5-15); ESTIMATED GFR 83 mL/min (>=60)
[2023-07-26 13:42] LABS: ACETAMINOPHEN 0 ug/ml (10-30); ETHANOL BLOOD MEDICAL < 3 mg/dL (0-3)
[2023-07-26] MEDS ORDERED: Sodium Chloride 0.9% 1,000 ML IV ONE (13:53)
[2023-07-26] MEDS ORDERED: Flumazenil 0.1 MG/ML 5 ML MDV IVPUSH PRN (14:15)
[2023-07-26] MEDS ORDERED: Ondansetron 4 MG/2 ML SDV IV PRN (14:15)
[2023-07-26] MEDS ORDERED: Ondansetron 4 MG Tab.DIS PO PRN (14:15)
[2023-07-26] MEDS ORDERED: Acetaminophen 325 MG Tab PO PRN (14:15)
[2023-07-26] MEDS ORDERED: Sodium Chloride 0.9% 10 ML Syringe FLUSH PRN (14:15)
[2023-07-26] MEDS ORDERED: SUMAtriptan 6 MG/0.5 ML SDV SUBCUT PRN (14:17)
[2023-07-26] MEDS ORDERED: SUMAtriptan 50 MG Tab PO PRN (14:17)
[2023-07-26] MEDS ORDERED: tiZANidine 4 MG Tab PO PRN (14:17)
[2023-07-26] MEDS ORDERED: MAGNESIUM HYDROXIDE 1200 MG PO PRN (14:17)
[2023-07-26] MEDS ORDERED: Zolpidem 5 MG Tab PO PRN (14:17)
[2023-07-26] MEDS ORDERED: Cyclobenzaprine 10 MG Tab PO PRN (14:17)
[2023-07-26] MEDS ORDERED: Sennosides/Docusate Sodium 50-8.6 MG Tab PO PRN (14:17)
[2023-07-26] MEDS ORDERED: SUMATRIPTAN 5 MG NAS PRN (14:17)
[2023-07-26] MEDS: Sodium Chloride 0.9% 1,000 ML IV SCH ×2 (15:13→22:50)
[2023-07-26] MEDS: QUEtiapine 25 MG Tab PO SCH (19:28)
[2023-07-26] MEDS: Oxymetazoline 0.05% Nasal Spray 30 ML Bottle NAS SCH (20:34)
[2023-07-26] MEDS: LORazepam 0.5 MG Tab PO SCH (20:36)
[2023-07-26] MEDS: Pantoprazole 40 MG Tab.CR PO SCH (20:45)
[2023-07-26] MEDS ORDERED: Pramipexole 0.5 MG Tab PO SCH (21:00)
[2023-07-26] MEDS ORDERED: atorvaSTATin 10 MG Tab PO SCH (21:00)
[2023-07-26] MEDS ORDERED: Metoprolol Tartrate 25 MG Tab PO SCH (21:00)
[2023-07-26] MEDS ORDERED: DULoxetine 60 MG Cap PO SCH (21:00)
[2023-07-27 05:07] LABS: % TRANSFERRIN SAT 17.5 % (20.0-50.0)
[2023-07-27] MEDS: QUEtiapine 25 MG Tab PO SCH (05:13)
[2023-07-27 05:19] VITALS: BP 174/94; PULSE 90
[2023-07-27] MEDS: Sodium Chloride 0.9% 1,000 ML IV SCH (06:50)
[2023-07-27 06:52] LABS: BASOPHILS ABSOLUTE AUTO 0.1 x10^3/uL (0.0-0.2); BASOPHILS PERCENT AUTO 0.6 % (0.2-1.2); EOSINOPHILS ABSOLUTE AUTO 0.2 x10^3/uL (0.0-0.5); EOSINOPHILS PERCENT AUTO 1.5 % (0.0-4.0); HEMATOCRIT 36.3 % (33.0-47.0); HEMOGLOBIN 11.9 g/dL (12.0-16.0); IMMATURE GRAN ABSOLUTE AUTO 0.02 x10^3/uL (0.00-0.07); LYMPHOCYTES ABSOLUTE AUTO 1.2 x10^3/uL (1.0-4.8); LYMPHOCYTES PERCENT AUTO 12.2 % (25.0-50.0); MEAN CORPUSCULAR HEMOGLOBIN 30.8 pg (26.0-32.0); MEAN CORPUSCULAR HGB CONC 32.8 g/dL (32.0-36.0); MONOCYTES ABSOLUTE AUTO 0.5 x10^3/uL (0.0-0.8); MONOCYTES PERCENT AUTO 5.6 % (2.0-11.0); NEUTROPHILS ABSOLUTE AUTO 7.8 x10^3/uL (1.8-7.7); NEUTROPHILS PERCENT AUTO 79.9 % (50.0-80.0); PLATELET COUNT,PLT 258 x10^3/uL (130-400); RED BLOOD CELL COUNT 3.86 x10^6/uL (4.00-5.50); WHITE BLOOD CELL COUNT,WBC 9.7 x10^3/uL (4.0-10.0)
[2023-07-27 07:04] LABS: CALCIUM 8.6 mg/dL (8.5-10.1); CREATININE 0.6 mg/dL (0.55-1.02); EST CRCL DRUG DOSING (CG) 90.92 mL/min; POTASSIUM,K 3.1 mmol/L (3.5-5.1)
[2023-07-27 07:05] LABS: ANION GAP 14.1 mmol/L (5-15)
[2023-07-27] MEDS: LORazepam 0.5 MG Tab PO SCH (08:28)
[2023-07-27] MEDS: Pantoprazole 40 MG Tab.CR PO SCH (08:29)
[2023-07-27] MEDS: Oxymetazoline 0.05% Nasal Spray 30 ML Bottle NAS SCH (08:30)
[2023-07-27] MEDS ORDERED: Ferrous Sulfate 325 MG Tab PO SCH (09:00)
== END 2023-07-27 08:30 | disposition left against medical advice (07) ==
LOC: VM.ED 12:17 → EEVIPCON 13:54 → VM.MS 13:54
PROVIDERS: ADMIT Physician Assistant Medical; ATTEND Physician Assistant Medical
DX: F41.9 Anxiety disorder, unspecified (principal); R41.0 Disorientation, unspecified; E78.00 Pure hypercholesterolemia, unspecified; K21.9 Gastro-esophageal reflux disease without esophagitis; K58.9 Irritable bowel syndrome, unspecified; I12.9 Hypertensive chronic kidney disease with stage 1 through stage 4 chronic kidney disease, or unspecified chronic kidney disease; N18.9 Chronic kidney disease, unspecified; M19.90 Unspecified osteoarthritis, unspecified site; M79.7 Fibromyalgia; G43.909 Migraine, unspecified, not intractable, without status migrainosus; F32.A Depression, unspecified; F43.10 Post-traumatic stress disorder, unspecified; M85.80 Other specified disorders of bone density and structure, unspecified site; Z88.8 Allergy status to other drugs, medicaments and biological substances; Z79.899 Other long term (current) drug therapy
CPT/HCPCS: 36415; 70450; 80048; 80053; 80143; 80179; 80305; 80307; 81001; 82550; 82728; 83540; 83550; 85025; 86140; A9270; J3360; J7030; 96361; 96374; 96375; 96376; 99285-25; G0378

== ENCOUNTER 2023-09-13 14:25 | Emergency (ER) | payer OTHER ==
[2023-09-13] MEDS ORDERED: Sodium Chloride 0.9% 10 ML Syringe FLUSH PRN (14:33)
[2023-09-13 14:57] LABS: HEMATOCRIT 40.5 % (33.0-47.0); MEAN CORPUSCULAR HEMOGLOBIN 30.1 pg (26.0-32.0); MEAN CORPUSCULAR HGB CONC 32.1 g/dL (32.0-36.0); MEAN CORPUSCULAR VOLUME 93.8 fL (78.0-93.0); PLATELET COUNT,PLT 613 x10^3/uL (130-400); RED BLOOD CELL COUNT 4.32 x10^6/uL (4.00-5.50)
[2023-09-13 15:01] LABS: WHITE BLOOD CELL COUNT,WBC 22.5 x10^3/uL (4.0-10.0)
[2023-09-13 15:03] VITALS: PULSE 91
[2023-09-13 15:07] LABS: BAND PERCENT MAN 5 % (0-6); EOSINOPHILS ABSOLUTE MAN 0.2 x10^3/uL (0.0-0.5); EOSINOPHILS PERCENT MAN 1 % (0-4); LYMPHOCYTES ABSOLUTE MAN 1.8 x10^3/uL (1.0-4.8); LYMPHOCYTES PERCENT MAN 8 % (25-50); METAMYELOCYTE PERCENT MAN 1 % (0); MONOCYTES ABSOLUTE MAN 0.9 x10^3/uL (0.0-0.8); MONOCYTES PERCENT MAN 4 % (2-11); NEUTROPHILS ABSOLUTE MAN 19.4 x10^3/uL (1.8-7.7); PLATELET COUNT ESTIMATE INCREASED; SEG NEUTROPHILS PERCENT MAN 81 % (50-80)
[2023-09-13 15:07] LABS: PROTHROMBIN TIME 10.7 SEC (9.5-12.2); PTT,PARTIAL THROMBOPLSTIN TIME 39.9 SEC (23.6-33.6)
[2023-09-13 15:10] LABS: ALANINE AMINOTRANSFERASE,ALT 26 U/L (14-59); ALBUMIN 3.2 g/dL (3.4-5.0); ALKALINE PHOSPHATASE 118 U/L (46-116); ASPARTATE AMNIOTRANSFERASE,AST 21 U/L (15-37); BILIRUBIN TOTAL 0.4 mg/dL (0.2-1.0); BLOOD UREA NITROGEN,BUN 17 mg/dL (7-18); C-REACTIVE PROTEIN 2.89 mg/dL (<=0.30); CALCIUM 10.1 mg/dL (8.5-10.1); CARBON DIOXIDE,CO2 24 mmol/L (21-32); CHLORIDE,CL 95 mmol/L (98-107); CREATININE 0.9 mg/dL (0.55-1.02); GLUCOSE RANDOM 112 mg/dL (70-99); LIPASE 41 U/L (19-71); PHOSPHORUS 3.9 mg/dL (2.6-4.7); POTASSIUM,K 4.3 mmol/L (3.5-5.1); PROTEIN TOTAL,TP 7.8 g/dL (6.4-8.2); SODIUM,NA 131 mmol/L (136-145)
[2023-09-13] MEDS: Sodium Chloride 0.9% 1,000 ML IV ONE (15:10)
[2023-09-13 15:11] LABS: ANION GAP 16.3 mmol/L (5-15); ESTIMATED GFR 72 mL/min (>=60)
[2023-09-13 15:12] LABS: LACTIC ACID 1.6 mmol/L (0.4-2.0)
[2023-09-13] MEDS: Iopamidol 612 MG/ML 100 ML Bottle IVPUSH ONE (15:48)
[2023-09-13] MEDS: Piperacillin/Tazobactam 4.5 GM in Sodium Chloride 0.9% 100 ML IV ONE (16:28)
[2023-09-13] MEDS: HYDROmorphone 0.5 MG/0.5 ML Syringe IVPUSH ONE (16:39)
[2023-09-13] MEDS: Ondansetron 4 MG/2 ML SDV IVPUSH ONE (16:39)
[2023-09-13 16:47] LABS: CORONAVIRUS COVID-19 NAA NEGATIVE (NEGATIVE); INFLUENZA A NAA NEGATIVE (NEGATIVE); INFLUENZA B NAA NEGATIVE (NEGATIVE); RESPIRATORY SYNCYTIAL VIR NAA NEGATIVE (NEGATIVE)
[2023-09-13 16:57] LABS: APPEARANCE,URINE SLIGHTLY CLOUDY (CLEAR); BILIRUBIN,URINE NEGATIVE (NEGATIVE); COLOR,URINE YELLOW (YELLOW); GLUCOSE,URINE NEGATIVE (NEGATIVE); KETONES,URINE NEGATIVE (NEGATIVE); LEUKOCYTE ESTERASE,URINE NEGATIVE (NEGATIVE); NITRITE,URINE NEGATIVE (NEGATIVE); OCCULT BLOOD,URINE NEGATIVE (NEGATIVE); PH,URINE 5.5 (5.0-8.0); PROTEIN,URINE TRACE mg/dL (NEGATIVE); UROBILINOGEN,URINE 0.2 EU/dL (0.2)
[2023-09-13 17:00] LABS: RBC,URINE 0-5 /HPF (NOT SEEN); SQUAMOUS EPITHELIAL CELLS,UR MODERATE /HPF (NOT SEEN); WBC,URINE NOT SEEN /HPF (NOT SEEN)
[2023-09-13 17:01] LABS: BACTERIA,URINE RARE /HPF (NOT SEEN); MUCUS,URINE NOT SEEN /LPF (NOT SEEN)
[2023-09-13] MEDS: HYDROmorphone 1 MG/ML Syringe IVPUSH ONE (17:10)
[2023-09-13 18:58] VITALS: BP 138/84
== END 2023-09-13 17:20 | disposition short-term general hospital (02) ==
LOC: VM.ED 14:25
DX: K56.609 Unspecified intestinal obstruction, unspecified as to partial versus complete obstruction (principal); J69.0 Pneumonitis due to inhalation of food and vomit; E78.00 Pure hypercholesterolemia, unspecified; K21.9 Gastro-esophageal reflux disease without esophagitis; I12.9 Hypertensive chronic kidney disease with stage 1 through stage 4 chronic kidney disease, or unspecified chronic kidney disease; N18.30 Chronic kidney disease, stage 3 unspecified; Z88.8 Allergy status to other drugs, medicaments and biological substances; Z79.899 Other long term (current) drug therapy; Z20.822 Contact with and (suspected) exposure to COVID-19
CPT/HCPCS: 0241U; 36415; 71045; 74018; 74177; 80053; 81001; 83605; 83690; 84100; 85025; 85610; 85730; 86140; 96361; 96365; 96367; 96375; 96376; 99285; J1170; J2405; J2543; J3370; J3490; J7030; J7050; Q9967

== ENCOUNTER 2023-10-07 11:38 | Emergency (ER) | payer OTHER ==
[2023-10-07] MEDS ORDERED: Sodium Chloride 0.9% 10 ML Syringe FLUSH PRN (11:55)
[2023-10-07] MEDS ORDERED: Ondansetron 4 MG/2 ML SDV IVPUSH ONE (11:58)
[2023-10-07] MEDS ORDERED: Sodium Chloride 0.9% 1,000 ML IV SCH (12:00)
[2023-10-07 12:16] LABS: HEMATOCRIT 41.7 % (33.0-47.0); HEMOGLOBIN 13.5 g/dL (12.0-16.0); MEAN CORPUSCULAR HEMOGLOBIN 30.4 pg (26.0-32.0); MEAN CORPUSCULAR HGB CONC 32.4 g/dL (32.0-36.0); MEAN CORPUSCULAR VOLUME 93.9 fL (78.0-93.0); PLATELET COUNT,PLT 420 x10^3/uL (130-400); RED BLOOD CELL COUNT 4.44 x10^6/uL (4.00-5.50); WHITE BLOOD CELL COUNT,WBC 19.8 x10^3/uL (4.0-10.0)
[2023-10-07 12:26] LABS: BAND PERCENT MAN 3 % (0-6); LYMPHOCYTES ABSOLUTE MAN 0.8 x10^3/uL (1.0-4.8); LYMPHOCYTES PERCENT MAN 4 % (25-50); MONOCYTES ABSOLUTE MAN 0.4 x10^3/uL (0.0-0.8); MONOCYTES PERCENT MAN 2 % (2-11); NEUTROPHILS ABSOLUTE MAN 18.6 x10^3/uL (1.8-7.7); SEG NEUTROPHILS PERCENT MAN 91 % (50-80)
[2023-10-07 12:27] LABS: PLATELET COUNT ESTIMATE INCREASED; STOMATOCYTES FEW; TOXIC GRANULATION OCCASIONAL
[2023-10-07 12:29] LABS: PROTHROMBIN TIME 10.7 SEC (9.5-12.2)
[2023-10-07 12:31] LABS: A/G RATIO 1.08; ALANINE AMINOTRANSFERASE,ALT 20 U/L (14-59); ALBUMIN 4.1 g/dL (3.4-5.0); ALKALINE PHOSPHATASE 124 U/L (46-116); AMYLASE 55 U/L (25-115); ASPARTATE AMNIOTRANSFERASE,AST 15 U/L (15-37); BILIRUBIN TOTAL 0.4 mg/dL (0.2-1.0); BLOOD UREA NITROGEN,BUN 19 mg/dL (7-18); CALCIUM 10.4 mg/dL (8.5-10.1); CARBON DIOXIDE,CO2 32 mmol/L (21-32); CHLORIDE,CL 97 mmol/L (98-107); CREATININE 0.9 mg/dL (0.55-1.02); GLUCOSE RANDOM 140 mg/dL (70-99); LIPASE 34 U/L (19-71); MAGNESIUM 2.6 mg/dL (1.8-2.4); POTASSIUM,K 3.9 mmol/L (3.5-5.1); PROTEIN TOTAL,TP 7.9 g/dL (6.4-8.2); SODIUM,NA 138 mmol/L (136-145)
[2023-10-07 12:31] LABS: APPEARANCE,URINE CLOUDY (CLEAR); BILIRUBIN,URINE NEGATIVE (NEGATIVE); COLOR,URINE DARK YELLOW (YELLOW); GLUCOSE,URINE NEGATIVE (NEGATIVE); KETONES,URINE NEGATIVE (NEGATIVE); LEUKOCYTE ESTERASE,URINE NEGATIVE (NEGATIVE); NITRITE,URINE NEGATIVE (NEGATIVE); OCCULT BLOOD,URINE NEGATIVE (NEGATIVE); PH,URINE 8.5 (5.0-8.0); PROTEIN,URINE TRACE mg/dL (NEGATIVE); UROBILINOGEN,URINE 0.2 EU/dL (0.2)
[2023-10-07 12:32] LABS: ANION GAP 12.9 mmol/L (5-15); C-REACTIVE PROTEIN < 0.50 mg/dL (<=0.50); ESTIMATED GFR 72 mL/min (>=60)
[2023-10-07 12:34] LABS: LACTIC ACID 1.1 mmol/L (0.4-2.0)
[2023-10-07 12:42] LABS: AMORPHOUS SEDIMENT,URINE MODERATE; BACTERIA,URINE OCCASIONAL /HPF (NOT SEEN); MUCUS,URINE OCCASIONAL /LPF (NOT SEEN); RBC,URINE 0-5 /HPF (NOT SEEN); SQUAMOUS EPITHELIAL CELLS,UR OCCASIONAL /HPF (NOT SEEN); TRIPLE PHOSPHATE CRYSTALS,UR FEW /HPF (NOT SEEN); WBC,URINE 0-5 /HPF (NOT SEEN)
[2023-10-07 15:02] VITALS: BP 151/78; PULSE 81
[2023-10-07] MEDS ORDERED: HYDROmorphone 0.5 MG/0.5 ML Syringe IVPUSH ONE (15:06)
== END 2023-10-07 15:18 | disposition short-term general hospital (02) ==
LOC: VM.ED 11:38
DX: K56.609 Unspecified intestinal obstruction, unspecified as to partial versus complete obstruction (principal); I12.9 Hypertensive chronic kidney disease with stage 1 through stage 4 chronic kidney disease, or unspecified chronic kidney disease; N18.30 Chronic kidney disease, stage 3 unspecified; E78.00 Pure hypercholesterolemia, unspecified; K21.9 Gastro-esophageal reflux disease without esophagitis; M19.90 Unspecified osteoarthritis, unspecified site; Z88.8 Allergy status to other drugs, medicaments and biological substances; Z79.899 Other long term (current) drug therapy
CPT/HCPCS: 36415; 74019; 80053; 81001; 82150; 83605; 83690; 83735; 85025; 85610; 85730; 86140; 87040; 96361; 96374; 96375; 99284; 99285-25; J1170; J2405; J7030

== ENCOUNTER 2023-12-28 17:57 | Observation (INO) | payer BC ==
[2023-12-28 18:27] LABS: BASOPHILS ABSOLUTE AUTO 0.1 x10^3/uL (0.0-0.2); BASOPHILS PERCENT AUTO 0.5 % (0.2-1.2); EOSINOPHILS ABSOLUTE AUTO 0.6 x10^3/uL (0.0-0.5); EOSINOPHILS PERCENT AUTO 3.5 % (0.0-4.0); HEMATOCRIT 36.1 % (33.0-47.0); HEMOGLOBIN 11.8 g/dL (12.0-16.0); IMMATURE GRAN ABSOLUTE AUTO 0.04 x10^3/uL (0.00-0.07); LYMPHOCYTES ABSOLUTE AUTO 1.4 x10^3/uL (1.0-4.8); LYMPHOCYTES PERCENT AUTO 7.5 % (25.0-50.0); MEAN CORPUSCULAR HGB CONC 32.7 g/dL (32.0-36.0); MEAN CORPUSCULAR VOLUME 91.9 fL (78.0-93.0); MONOCYTES ABSOLUTE AUTO 0.7 x10^3/uL (0.0-0.8); MONOCYTES PERCENT AUTO 4.1 % (2.0-11.0); NEUTROPHILS ABSOLUTE AUTO 15.4 x10^3/uL (1.8-7.7); NEUTROPHILS PERCENT AUTO 84.2 % (50.0-80.0); PLATELET COUNT,PLT 362 x10^3/uL (130-400); RED BLOOD CELL COUNT 3.93 x10^6/uL (4.00-5.50)
[2023-12-28 18:37] LABS: WHITE BLOOD CELL COUNT,WBC 18.2 x10^3/uL (4.0-10.0)
[2023-12-28 18:44] LABS: A/G RATIO 1.06; ALANINE AMINOTRANSFERASE,ALT 49 U/L (14-59); ALBUMIN 3.4 g/dL (3.4-5.0); ALKALINE PHOSPHATASE 102 U/L (46-116); ASPARTATE AMNIOTRANSFERASE,AST 27 U/L (15-37); BILIRUBIN TOTAL 0.2 mg/dL (0.2-1.0); BLOOD UREA NITROGEN,BUN 25 mg/dL (7-18); CARBON DIOXIDE,CO2 21 mmol/L (21-32); CHLORIDE,CL 105 mmol/L (98-107); GLUCOSE RANDOM 146 mg/dL (70-99); MAGNESIUM 1.7 mg/dL (1.8-2.4); PROTEIN TOTAL,TP 6.6 g/dL (6.4-8.2); SODIUM,NA 140 mmol/L (136-145)
[2023-12-28 18:45] LABS: ESTIMATED GFR 63 mL/min (>=60)
[2023-12-28 18:56] LABS: CORONAVIRUS COVID-19 NAA NEGATIVE (NEGATIVE); INFLUENZA A NAA NEGATIVE (NEGATIVE); INFLUENZA B NAA NEGATIVE (NEGATIVE); RESPIRATORY SYNCYTIAL VIR NAA NEGATIVE (NEGATIVE)
[2023-12-28] MEDS: Sodium Chloride 0.9% 1,000 ML IV ONE (18:57)
[2023-12-28] MEDS: Magnesium Sulfate/Water 2 GM in Premix Bag 1 BAG IV ONE (19:32)
[2023-12-28] MEDS ORDERED: Ondansetron 4 MG Tab.DIS PO PRN (19:37)
[2023-12-28] MEDS ORDERED: Acetaminophen 325 MG Tab PO PRN (19:37)
[2023-12-28] MEDS ORDERED: Sodium Chloride 0.9% 10 ML Syringe FLUSH PRN (19:37)
[2023-12-28] MEDS ORDERED: Polyethylene Glycol 3350 Powder 17 GM Packet PO PRN (19:42)
[2023-12-28] MEDS ORDERED: SUMATRIPTAN 5 MG NAS PRN (19:42)
[2023-12-28] MEDS ORDERED: tiZANidine 4 MG Tab PO PRN (19:42)
[2023-12-28] MEDS ORDERED: traMADol 50 MG Tab PO PRN (19:42)
[2023-12-28] MEDS ORDERED: Zolpidem 5 MG Tab PO PRN (19:42)
[2023-12-28] MEDS ORDERED: Non-Formulary Medication 1 Each (Sumatriptan Succinate [Imitrex] 100 MG Tablet) PO PRN (19:42)
[2023-12-28] MEDS ORDERED: SUMAtriptan 6 MG/0.5 ML SDV SUBCUT PRN (19:42)
[2023-12-28] MEDS ORDERED: Sennosides 8.6 MG Tab PO PRN (19:42)
[2023-12-28] MEDS: DULoxetine 60 MG Cap PO SCH (20:55)
[2023-12-28] MEDS: Acetaminophen 500 MG Tab PO SCH (20:55)
[2023-12-28] MEDS: Sodium Chloride 0.9% 1,000 ML IV SCH (20:55)
[2023-12-28] MEDS: atorvaSTATin 10 MG Tab PO SCH (20:55)
[2023-12-28] MEDS: Pramipexole 0.5 MG Tab PO SCH (20:55)
[2023-12-29 07:46] LABS: BASOPHILS ABSOLUTE AUTO 0.1 x10^3/uL (0.0-0.2); EOSINOPHILS ABSOLUTE AUTO 0.7 x10^3/uL (0.0-0.5); EOSINOPHILS PERCENT AUTO 7.4 % (0.0-4.0); HEMATOCRIT 34.6 % (33.0-47.0); HEMOGLOBIN 11.3 g/dL (12.0-16.0); IMMATURE GRAN ABSOLUTE AUTO 0.01 x10^3/uL (0.00-0.07); LYMPHOCYTES ABSOLUTE AUTO 1.5 x10^3/uL (1.0-4.8); LYMPHOCYTES PERCENT AUTO 16.5 % (25.0-50.0); MEAN CORPUSCULAR HEMOGLOBIN 30.3 pg (26.0-32.0); MEAN CORPUSCULAR HGB CONC 32.7 g/dL (32.0-36.0); MEAN CORPUSCULAR VOLUME 92.8 fL (78.0-93.0); MONOCYTES ABSOLUTE AUTO 0.4 x10^3/uL (0.0-0.8); MONOCYTES PERCENT AUTO 4.8 % (2.0-11.0); NEUTROPHILS ABSOLUTE AUTO 6.2 x10^3/uL (1.8-7.7); NEUTROPHILS PERCENT AUTO 70.2 % (50.0-80.0); PLATELET COUNT,PLT 300 x10^3/uL (130-400); RED BLOOD CELL COUNT 3.73 x10^6/uL (4.00-5.50); WHITE BLOOD CELL COUNT,WBC 8.9 x10^3/uL (4.0-10.0)
[2023-12-29 07:52] LABS: A/G RATIO 1.1; ALBUMIN 3.2 g/dL (3.4-5.0); ANION GAP 15.4 mmol/L (5-15); BILIRUBIN TOTAL 0.1 mg/dL (0.2-1.0); CALCIUM 8.3 mg/dL (8.5-10.1); CREATININE 0.8 mg/dL (0.55-1.02); EST CRCL DRUG DOSING (CG) 61.8 mL/min; MAGNESIUM 1.9 mg/dL (1.8-2.4); POTASSIUM,K 4.4 mmol/L (3.5-5.1); PROTEIN TOTAL,TP 6.1 g/dL (6.4-8.2)
[2023-12-29 08:19] LABS: BILIRUBIN,URINE NEGATIVE (NEGATIVE); COLOR,URINE DARK YELLOW (YELLOW); GLUCOSE,URINE NEGATIVE (NEGATIVE); KETONES,URINE NEGATIVE (NEGATIVE); LEUKOCYTE ESTERASE,URINE TRACE (NEGATIVE); NITRITE,URINE NEGATIVE (NEGATIVE); OCCULT BLOOD,URINE NEGATIVE (NEGATIVE); PROTEIN,URINE NEGATIVE (NEGATIVE); UROBILINOGEN,URINE 0.2 EU/dL (0.2)
[2023-12-29 08:29] LABS: APPEARANCE,URINE SLIGHTLY CLOUDY (CLEAR)
[2023-12-29 08:30] LABS: BACTERIA,URINE FEW /HPF (NOT SEEN); MUCUS,URINE OCCASIONAL /LPF (NOT SEEN); RBC,URINE 0-5 /HPF (NOT SEEN); SQUAMOUS EPITHELIAL CELLS,UR FEW /HPF (NOT SEEN); WBC,URINE 0-5 /HPF (NOT SEEN)
[2023-12-29] MEDS: Furosemide 20 MG Tab PO SCH (08:30)
[2023-12-29] MEDS: Ferrous Sulfate 325 MG Tab PO SCH (08:30)
[2023-12-29 13:14] VITALS: BP 132/77; PULSE 86
== END 2023-12-29 11:00 | disposition home or self-care (01) ==
LOC: VM.ED 17:57 → VM.MS 19:13
PROVIDERS: ADMIT Physician Assistant Medical; ATTEND Physician Assistant Medical
DX: I95.1 Orthostatic hypotension (principal); E83.42 Hypomagnesemia; R55 Syncope and collapse; R82.71 Bacteriuria; I12.9 Hypertensive chronic kidney disease with stage 1 through stage 4 chronic kidney disease, or unspecified chronic kidney disease; N18.31 Chronic kidney disease, stage 3a; E78.00 Pure hypercholesterolemia, unspecified; K21.9 Gastro-esophageal reflux disease without esophagitis; F31.9 Bipolar disorder, unspecified; F41.1 Generalized anxiety disorder; Z79.899 Other long term (current) drug therapy
CPT/HCPCS: 0241U; 36415; 71046; 80053; 81001; 81003; 83735; 84484; 85025; 87086; 87088; 87186; 93005; 96361; 96365; 96366; 99285; A9270; G0378; J3475; J7030

== ENCOUNTER 2024-06-01 18:58 | Emergency (ER) | payer OTHER, BC ==
[2024-06-01] MEDS: Lidocaine 1% 30 ML SDV INJECT ONE (19:35)
[2024-06-01] MEDS: Acetaminophen/HYDROcodone 325-5 MG Tab PO ONE (19:36)
[2024-06-01 20:38] VITALS: PULSE 85
[2024-06-01] MEDS: Take Home: Acetaminophen/HYDROcodone 325-5 MG, 5 Tab Pack PO ONE (21:50)
[2024-06-01 22:04] VITALS: BP 143/78
== END 2024-06-01 22:00 | disposition home or self-care (01) ==
LOC: VM.ED 18:58
DX: S01.01XA Laceration without foreign body of scalp, initial encounter (principal); S09.90XA Unspecified injury of head, initial encounter; I12.9 Hypertensive chronic kidney disease with stage 1 through stage 4 chronic kidney disease, or unspecified chronic kidney disease; N18.9 Chronic kidney disease, unspecified; E78.00 Pure hypercholesterolemia, unspecified; K21.9 Gastro-esophageal reflux disease without esophagitis; Z90.49 Acquired absence of other specified parts of digestive tract; Z90.710 Acquired absence of both cervix and uterus; Z88.8 Allergy status to other drugs, medicaments and biological substances; Z79.899 Other long term (current) drug therapy; W50.0XXA Accidental hit or strike by another person, initial encounter
CPT/HCPCS: 12002; 70450; 72125; 99283; A9270-GY; J3490

== ENCOUNTER 2024-09-20 01:25 | Emergency (ER) | payer BC ==
[2024-09-20] MEDS: Take Home: Acetaminophen/Codeine 300 MG/30 MG, 5 Tab Pack PO ONE (01:46)
[2024-09-20] MEDS: Ketorolac 30 MG/ML SDV IM ONE (02:00)
[2024-09-20 03:58] VITALS: BP 134/79; PULSE 81
== END 2024-09-20 02:07 | disposition home or self-care (01) ==
LOC: VM.ED 01:25
DX: S70.12XA Contusion of left thigh, initial encounter (principal); S20.212A Contusion of left front wall of thorax, initial encounter; S30.0XXA Contusion of lower back and pelvis, initial encounter; I12.9 Hypertensive chronic kidney disease with stage 1 through stage 4 chronic kidney disease, or unspecified chronic kidney disease; N18.9 Chronic kidney disease, unspecified; E78.00 Pure hypercholesterolemia, unspecified; K21.9 Gastro-esophageal reflux disease without esophagitis; Z90.49 Acquired absence of other specified parts of digestive tract; Z90.710 Acquired absence of both cervix and uterus; Z79.899 Other long term (current) drug therapy; Z88.8 Allergy status to other drugs, medicaments and biological substances; W01.0XXA Fall on same level from slipping, tripping and stumbling without subsequent striking against object, initial encounter
CPT/HCPCS: 96372; 99284; A9270; J1885

== ENCOUNTER 2024-10-12 12:46 | Emergency (ER) | payer BC ==
[2024-10-12] MEDS ORDERED: Sodium Chloride 0.9% 10 ML Syringe FLUSH PRN (13:21)
[2024-10-12 13:38] LABS: BASOPHILS ABSOLUTE AUTO 0.1 x10^3/uL (0.0-0.2); BASOPHILS PERCENT AUTO 0.7 % (0.2-1.2); EOSINOPHILS ABSOLUTE AUTO 0.1 x10^3/uL (0.0-0.5); EOSINOPHILS PERCENT AUTO 1.3 % (0.0-4.0); HEMATOCRIT 38.5 % (33.0-47.0); IMMATURE GRAN ABSOLUTE AUTO 0.01 x10^3/uL (0.00-0.07); LYMPHOCYTES ABSOLUTE AUTO 1.3 x10^3/uL (1.0-4.8); LYMPHOCYTES PERCENT AUTO 15.2 % (25.0-50.0); MEAN CORPUSCULAR HEMOGLOBIN 31.2 pg (26.0-32.0); MEAN CORPUSCULAR HGB CONC 33.8 g/dL (32.0-36.0); MEAN CORPUSCULAR VOLUME 92.3 fL (78.0-93.0); MONOCYTES ABSOLUTE AUTO 0.6 x10^3/uL (0.0-0.8); MONOCYTES PERCENT AUTO 6.6 % (2.0-11.0); NEUTROPHILS ABSOLUTE AUTO 6.4 x10^3/uL (1.8-7.7); NEUTROPHILS PERCENT AUTO 76.1 % (50.0-80.0); PLATELET COUNT,PLT 365 x10^3/uL (130-400); RED BLOOD CELL COUNT 4.17 x10^6/uL (4.00-5.50); WHITE BLOOD CELL COUNT,WBC 8.4 x10^3/uL (4.0-10.0)
[2024-10-12] MEDS: Lactated Ringers 1,000 ML IV ONE (13:45)
[2024-10-12 14:02] LABS: A/G RATIO 1.12; ALBUMIN 3.8 g/dL (3.4-5.0); ANION GAP 18.1 mmol/L (5-15); BILIRUBIN TOTAL 0.4 mg/dL (0.2-1.0); CALCIUM 9.9 mg/dL (8.5-10.1); EST CRCL DRUG DOSING (CG) 49.93 mL/min; POTASSIUM,K 4.1 mmol/L (3.5-5.1); PROTEIN TOTAL,TP 7.2 g/dL (6.4-8.2)
[2024-10-12 15:54] VITALS: BP 105/57; PULSE 82
== END 2024-10-12 14:37 | disposition home or self-care (01) ==
LOC: VM.ED 12:46
DX: E86.0 Dehydration (principal); G47.9 Sleep disorder, unspecified; I12.9 Hypertensive chronic kidney disease with stage 1 through stage 4 chronic kidney disease, or unspecified chronic kidney disease; N18.9 Chronic kidney disease, unspecified; E78.00 Pure hypercholesterolemia, unspecified; Z90.49 Acquired absence of other specified parts of digestive tract; Z90.710 Acquired absence of both cervix and uterus; Z79.899 Other long term (current) drug therapy; Z88.8 Allergy status to other drugs, medicaments and biological substances
CPT/HCPCS: 36415; 80053; 85025; 96360; 99284; 99284-25; J7120